=== PATIENT | female | born 1935 | race Caucasian/White ===

== ENCOUNTER → 2017-07-18 | Outpatient (CLI) | payer MEDICARE ==
--- NOTE | 2017-07-18 13:27 | XR ---
EXAMINATION TYPE: XR pelvis AP view, XR Hip Complete RT DATE OF EXAM: 07/18/2017 CLINICAL HISTORY: Pelvic and right hip pain. TECHNIQUE: A single AP view of the pelvis is obtained. Two views of the right hip are obtained. COMPARISON: None. FINDINGS: There is gaseous distention without abnormal dilation of the entirety of the visualized large bowel m easuring up to 6.0 cm. Small bowel gaseous distention is also noted. There is rotation of the left he mipelvis, slightly limiting evaluation. Although in this patient with right-sided pain there is no gr oss evidence of fracture particularly on the right. There is mild to moderate bilateral femoral aceta bular arthropathy. The hip and sacroiliac joints appear symmetric and unremarkable. The overlying soft tissue appears u nremarkable. Two views of right hip show no acute fracture or dislocation. No focal lytic or sclerot ic lesion seen in the proximal right femur. Small cam deformity is seen at the right femoral head nec k junction, which predisposes the patient to internal impingement. Moderate calcific atheromatous jaspal nges are present. IMPRESSION: 1. No acute fracture or dislocation in the pelvis or right hip. 2. Moderate femoral acetabular arthropathy bilaterally. Small cam deformity of the right femoral head neck junction which predisposes the patient to internal impingement. 3. Gaseous distention without dilatation of the large and small bowel.
== END | disposition home or self-care (01) ==
LOC: RADXRMAIN 11:48
PROVIDERS: ATTEND Family Medicine
DX: M12.88 Other specific arthropathies, not elsewhere classified, other specified site (principal); M21.851 Other specified acquired deformities of right thigh
CPT/HCPCS: 72170; 73502; 83036

== ENCOUNTER 2017-07-23 14:54 | Inpatient (IN) | payer MEDICARE ==
[2017-07-23] MEDS ORDERED: SODIUM CHLORIDE 0.9% 1,000 ML IV STA ×2 (15:56)
--- NOTE | 2017-07-23 16:20 | ED ---
General Adult HPI - General Chief complaint: Weakness Stated complaint: Weakness Time Seen by Provider: 07/23/17 15:49 Source: patient, family, RN notes reviewed, old records reviewed Mode of arrival: wheelchair Limitations: no limitations - History of Present Illness Initial comments: This is an 81-year-old female to the ER for evaluation. This patient presents for evaluation regards to multiple different complaints generally sobering arm weakness, abdominal pain. Patient denies fevers. Patient is going to evaluation regarding leg pain and increased shortness of breath with it with walking, she sees cardiology service. She does have a follow-up appointment in 2 weeks, daughter is concerned over patient's pain in her legs, weakness in current abdominal pain. Patient herself has no complaints - Related Data Home Medications Medication Instructions Recorded Confirmed Apixaban [Eliquis] 2.5 mg PO BID 07/23/17 07/23/17 Ascorbic Acid [Vitamin C] 500 mg PO DAILY 07/23/17 07/23/17 Atorvastatin [Lipitor] 10 mg PO DAILY@1200 07/23/17 07/23/17 Calcium Carbonate/Vitamin D3 1 tab PO DAILY 07/23/17 07/23/17 [Calcium 600-Vit D3 400 Caplet] Empagliflozin/Linagliptin 0.5 tab PO DAILY 07/23/17 07/23/17 [Glyxambi 25 mg-5 mg Tablet] Metoprolol Tartrate [Lopressor] 25 mg PO BID 07/23/17 07/23/17 Multivitamins, Thera [Multivitamin 1 tab PO DAILY 07/23/17 07/23/17 (formulary)] Risedronate Sodium [Actonel] 35 mg PO WE 07/23/17 07/23/17 Spironolact/Hydrochlorothiazid 1 tab PO DAILY 07/23/17 07/23/17 [Aldactazide 25-25 MG] amLODIPine [Norvasc] 5 mg PO DAILY 07/23/17 07/23/17 Allergies Allergy/AdvReac Type Severity Reaction Status Date / Time No Known Allergies Allergy Verified 07/23/17 15:55 Review of Systems ROS Statement: Those systems with pertinent positive or pertinent negative responses have been documented in the HPI. ROS Other: All systems not noted in ROS Statement are negative. Past Medical History Past Medical History: Atrial Fibrillation, Diabetes Mellitus, Hyperlipidemia, Hypertension Additional Past Medical History / Comment(s): decreased pulses in BLE History of Any Multi-Drug Resistant Organisms: None Reported Additional Past Surgical History / Comment(s): bowel sx Past Psychological History: Anxiety Smoking Status: Current every day smoker Past Alcohol Use History: None Reported Past Drug Use History: None Reported General Exam Limitations: no limitations General appearance: alert, in no apparent distress Head exam: Present: atraumatic, normocephalic, normal inspection Eye exam: Present: normal appearance, PERRL, EOMI. Absent: scleral icterus, conjunctival injection, periorbital swelling ENT exam: Present: normal exam, mucous membranes moist Neck exam: Present: normal inspection. Absent: tenderness, meningismus, lymphadenopathy Respiratory exam: Present: normal lung sounds bilaterally. Absent: respiratory distress, wheezes, rales, rhonchi, stridor Cardiovascular Exam: Present: tachycardia, irregular rhythm, normal heart sounds. Absent: systolic murmur, diastolic murmur, rubs, gallop, clicks GI/Abdominal exam: Present: soft, normal bowel sounds. Absent: distended, tenderness, guarding, rebound, rigid Extremities exam: Present: normal inspection, full ROM, normal capillary refill. Absent: tenderness, pedal edema, joint swelling, calf tenderness Back exam: Present: normal inspection Neurological exam: Present: alert, oriented X3, CN II-XII intact Psychiatric exam: Present: normal affect, normal mood Skin exam: Present: warm, dry, intact, normal color. Absent: rash Course Vital Signs 07/23/17 07/23/17 15:19 17:27 Temperature 97.3 F L Pulse Rate 82 120 H Respiratory 18 18 Rate Blood Pressure 117/64 145/105 O2 Sat by Pulse 95 95 Oximetry - Reevaluation(s) Reevaluation #1: 07/23/17 17:38 Mild improvement improvement with heart rate control EKG Findings - EKG Comments: EKG Findings:: EKG shows A. fib with RVR rate 129, QRS 160, QTc 457 Medical Decision Making - Medical Decision Making 81 female the ER evaluation for weakness, A. fib with RVR, dehydration and abdominal pain shortness of breath. Patient is to be admitted for continued cardiology evaluation currently outgoing testing with cardiology for peripheral arterial disease. - Lab Data Result diagrams: 07/23/17 16:15 07/23/17 16:15 Lab Results 0607/23/17 07/23/17 Range/Units 16:15 16:15 16:15 WBC 8.4 (3.8-10.6) k/uL RBC 4.57 (3.80-5.40) m/uL Hgb 14.4 (11.4-16.0) gm/dL Hct 42.6 (34.0-46.0) % MCV 93.1 (80.0-100.0) fL MCH 31.4 (25.0-35.0) pg MCHC 33.7 (31.0-37.0) g/dL RDW 12.9 (11.5-15.5) % Plt Count 234 (150-450) k/uL Neutrophils % 72 % Lymphocytes % 19 % Monocytes % 6 % Eosinophils % 2 % Basophils % 1 % Neutrophils # 6.0 (1.3-7.7) k/uL Lymphocytes # 1.6 (1.0-4.8) k/uL Monocytes # 0.5 (0-1.0) k/uL Eosinophils # 0.1 (0-0.7) k/uL Basophils # 0.1 (0-0.2) k/uL PT (9.0-12.0) sec INR (<1.2) APTT (22.0-30.0) sec Sodium 139 (137-145) mmol/L Potassium 2.9 L* (3.5-5.1) mmol/L Chloride 100 (98-107) mmol/L Carbon Dioxide 27 (22-30) mmol/L Anion Gap 12 mmol/L BUN 19 H (7-17) mg/dL Creatinine 0.60 (0.52-1.04) mg/dL Est GFR (CKD-EPI)AfAm >90 (>60 ml/min/1.73 sqM) Est GFR (CKD-EPI)NonAf 85 (>60 ml/min/1.73 sqM) Glucose 178 H (74-99) mg/dL Plasma Lactic Acid Asif (0.7-2.0) mmol/L Calcium 8.8 (8.4-10.2) mg/dL Phosphorus 3.2 (2.5-4.5) mg/dL Magnesium 1.8 (1.6-2.3) mg/dL Total Bilirubin 0.5 (0.2-1.3) mg/dL AST 45 H (14-36) U/L ALT 65 H (9-52) U/L Alkaline Phosphatase 69 (38-126) U/L Total Creatine Kinase 91 (30-135) U/L CK-MB (CK-2) 3.2 H* (0.0-2.4) ng/mL CK-MB (CK-2) Rel Index 3.5 Troponin I 0.779 H* (0.000-0.034) ng/mL Total Protein 5.9 L (6.3-8.2) g/dL Albumin 3.6 (3.5-5.0) g/dL Urine Color Urine Appearance (Clear) Urine pH (5.0-8.0) Ur Specific [place] (1.001-1.035) Urine Protein (Negative) Urine Glucose (UA) (Negative) Urine Ketones (Negative) Urine Blood (Negative) Urine Nitrite (Negative) Urine Bilirubin (Negative) Urine Urobilinogen (<2.0) mg/dL Ur Leukocyte Esterase (Negative) Urine RBC (0-5) /hpf Urine WBC (0-5) /hpf Ur Squamous Epith Cells (0-4) /hpf Urine Bacteria (None) /hpf Hyaline Casts (0-2) /lpf Urine Mucus (None) /hpf 07/23/17 07/23/17 07/23/17 Range/Units 16:15 16:15 16:15 WBC (3.8-10.6) k/uL RBC (3.80-5.40) m/uL Hgb (11.4-16.0) gm/dL Hct (34.0-46.0) % MCV (80.0-100.0) fL MCH (25.0-35.0) pg MCHC (31.0-37.0) g/dL RDW (11.5-15.5) % Plt Count (150-450) k/uL Neutrophils % % Lymphocytes % % Monocytes % % Eosinophils % % Basophils % % Neutrophils # (1.3-7.7) k/uL Lymphocytes # (1.0-4.8) k/uL Monocytes # (0-1.0) k/uL Eosinophils # (0-0.7) k/uL Basophils # (0-0.2) k/uL PT 10.5 (9.0-12.0) sec INR 1.1 (<1.2) APTT 21.2 L (22.0-30.0) sec Sodium (137-145) mmol/L Potassium (3.5-5.1) mmol/L Chloride (98-107) mmol/L Carbon Dioxide (22-30) mmol/L Anion Gap mmol/L BUN (7-17) mg/dL Creatinine (0.52-1.04) mg/dL Est GFR (CKD-EPI)AfAm (>60 ml/min/1.73 sqM) Est GFR (CKD-EPI)NonAf (>60 ml/min/1.73 sqM) Glucose (74-99) mg/dL Plasma Lactic Acid Asif 1.7 (0.7-2.0) mmol/L Calcium (8.4-10.2) mg/dL Phosphorus (2.5-4.5) mg/dL Magnesium (1.6-2.3) mg/dL Total Bilirubin (0.2-1.3) mg/dL AST (14-36) U/L ALT (9-52) U/L Alkaline Phosphatase (38-126) U/L Total Creatine Kinase (30-135) U/L CK-MB (CK-2) (0.0-2.4) ng/mL CK-MB (CK-2) Rel Index Troponin I (0.000-0.034) ng/mL Total Protein (6.3-8.2) g/dL Albumin (3.5-5.0) g/dL Urine Color Yellow Urine Appearance Clear (Clear) Urine pH 6.0 (5.0-8.0) Ur Specific [place] 1.023 (1.001-1.035) Urine Protein 1+ H (Negative) Urine Glucose (UA) 3+ H (Negative) Urine Ketones 1+ H (Negative) Urine Blood Negative (Negative) Urine Nitrite Negative (Negative) Urine Bilirubin Negative (Negative) Urine Urobilinogen <2.0 (<2.0) mg/dL Ur Leukocyte Esterase Trace H (Negative) Urine RBC 3 (0-5) /hpf Urine WBC 4 (0-5) /hpf Ur Squamous Epith Cells 1 (0-4) /hpf Urine Bacteria Rare H (None) /hpf Hyaline Casts 5 H (0-2) /lpf Urine Mucus Few H (None) /hpf - Radiology Data Radiology results: report reviewed (Chest x-ray with x-ray KUB positive for pleural effusion), image reviewed Disposition Clinical Impression: Atrial fibrillation with RVR, Hypokalemia, Dehydration, Weakness Disposition: ADMITTED IP TO THIS HOSP Condition: Fair Is patient prescribed a controlled substance at d/c from ED?: No Referrals: Lowell Velazquez DO [Primary Care Provider] - 1-2 days
[2017-07-23 16:30] LABS: Basophils # (A) 0.1 k/uL (0-0.2); Basophils % (A) 1 %; Eosinophils # (A) 0.1 k/uL (0-0.7); Eosinophils % (A) 2 %; HCT 42.6 % (34.0-46.0); HGB 14.4 gm/dL (11.4-16.0); Lymphocytes # (A) 1.6 k/uL (1.0-4.8); Lymphocytes % (A) 19 %; MCH 31.4 pg (25.0-35.0); MCHC 33.7 g/dL (31.0-37.0); MCV 93.1 fL (80.0-100.0); Mean Platelet Volume 8.3; Monocytes # (A) 0.5 k/uL (0-1.0); Monocytes % (A) 6 %; Neutrophils % (A) 72 %; Platelet Count 234 k/uL (150-450); RBC 4.57 m/uL (3.80-5.40); RDW 12.9 % (11.5-15.5); WBC 8.4 k/uL (3.8-10.6)
[2017-07-23 16:33] LABS: Appearance,Urine Clear (Clear); Bacteria,Urine Rare /hpf; Bilirubin,Urine Negative (Negative); Blood,Urine Negative (Negative); Color,Urine Yellow; Glucose,Urine (UA) 3+ (Negative); Hyaline Casts,Urine 5 /lpf (0-2); Ketones,Urine 1+ (Negative); Leukocyte Esterase,Urine Trace (Negative); Mucus,Urine Few /hpf; Nitrite,Urine Negative (Negative); Protein,Urine 1+ (Negative); RBC,Urine 3 /hpf (0-5); Specific Gravity,Urine 1.023 (1.001-1.035); Squamous Epithelial Cell,Urine 1 /hpf (0-4); Urobilinogen,Urine <2.0 mg/dL (<2.0); WBC,Urine 4 /hpf (0-5)
--- NOTE | 2017-07-23 16:36 | XR ---
EXAMINATION TYPE: XR abdomen acute w cxr DATE OF EXAM: 07/23/2017 COMPARISON: NONE HISTORY: Pain, frequent falls TECHNIQUE: Frontal chest upright and supine views of the abdomen FINDINGS: There is a moderate right pleural effusion. Lungs otherwise appear clear. Scoliosis is pres ent. Vascular calcifications within the aorta. Nonspecific bowel gas is present. Hepatomegaly may be present. Scoliosis within the lumbar spine. Some nonspecific bowel gas within the pelvis. IMPRESSION: 1. Nonspecific abdomen. 2. Moderate right pleural effusion.
[2017-07-23 16:45] LABS: ALT 65 U/L (9-52); AST 45 U/L (14-36); Albumin 3.6 g/dL (3.5-5.0); Alkaline Phosphatase 69 U/L (38-126); Anion Gap 12 mmol/L; Blood Urea Nitrogen 19 mg/dL (7-17); Calcium 8.8 mg/dL (8.4-10.2); Carbon Dioxide 27 mmol/L (22-30); Chloride 100 mmol/L (98-107); Glucose 178 mg/dL (74-99); Magnesium 1.8 mg/dL (1.6-2.3); Phosphorus 3.2 mg/dL (2.5-4.5); Sodium 139 mmol/L (137-145); Total Bilirubin 0.5 mg/dL (0.2-1.3); Total Protein 5.9 g/dL (6.3-8.2)
[2017-07-23 16:47] LABS: INR 1.1 (<1.2); Prothrombin Time 10.5 sec (9.0-12.0)
[2017-07-23 16:49] LABS: Potassium 2.9 mmol/L (3.5-5.1)
[2017-07-23] MEDS ORDERED: POTASSIUM BICARBONATE/CIT AC 20 MEQ TABLET.EFF PO ONE (16:49)
[2017-07-23 16:53] LABS: Partial Thromboplastin Time 21.2 sec (22.0-30.0)
[2017-07-23] MEDS ORDERED: POTASSIUM CHLORIDE 20 MEQ in WATER FOR INJECTION 1 100ML.BAG IVPB STA (16:57)
[2017-07-23] MEDS ORDERED: DILTIAZEM 50 MG in SODIUM CHLORIDE 0.9% 40 ML IV ONE (17:00)
[2017-07-23 17:15] LABS: Creatine Kinase MB 3.2 ng/mL (0.0-2.4); Troponin I 0.779 ng/mL (0.000-0.034)
[2017-07-23] MEDS ORDERED: MORPHINE SULFATE 2 MG/ML SYRINGE IV PRN (17:36)
[2017-07-23] MEDS ORDERED: NITROGLYCERIN SL TABS 0.4 MG TAB SUBLINGUAL PRN (17:36)
[2017-07-23] MEDS ORDERED: REPAGLINIDE 1 MG TAB PO PRN (21:08)
[2017-07-23 21:33] LABS: Glucose,Whole Blood 247 mg/dL (75-99)
[2017-07-23] MEDS: METOPROLOL TARTRATE 25 MG TAB PO SCH (21:37)
[2017-07-23 23:16] LABS: Creatine Kinase MB 2.8 ng/mL (0.0-2.4); Troponin I 0.662 ng/mL (0.000-0.034)
[2017-07-24 01:37] LABS: Hemoglobin A1C 9.2 % (4.0-6.0)
[2017-07-24 04:28] LABS: Basophils % (A) 0 %; Eosinophils # (A) 0.2 k/uL (0-0.7); Eosinophils % (A) 3 %; HCT 37.3 % (34.0-46.0); HGB 12.5 gm/dL (11.4-16.0); Lymphocytes # (A) 1.2 k/uL (1.0-4.8); Lymphocytes % (A) 18 %; MCH 31.1 pg (25.0-35.0); MCHC 33.5 g/dL (31.0-37.0); MCV 92.9 fL (80.0-100.0); Mean Platelet Volume 8.2; Monocytes # (A) 0.3 k/uL (0-1.0); Monocytes % (A) 5 %; Neutrophils # (A) 4.5 k/uL (1.3-7.7); Neutrophils % (A) 72 %; Platelet Count 199 k/uL (150-450); RBC 4.01 m/uL (3.80-5.40); WBC 6.3 k/uL (3.8-10.6)
[2017-07-24 04:45] LABS: Anion Gap 7 mmol/L; Blood Urea Nitrogen 10 mg/dL (7-17); Calcium 7.9 mg/dL (8.4-10.2); Carbon Dioxide 24 mmol/L (22-30); Chloride 105 mmol/L (98-107); Cholesterol 79 mg/dL (<200); Glucose 149 mg/dL (74-99); HDL Cholesterol 27 mg/dL (40-60); LDL Cholesterol,Calculated 34 mg/dL (0-99); Potassium 3.5 mmol/L (3.5-5.1); Sodium 136 mmol/L (137-145); Triglycerides 91 mg/dL (<150)
[2017-07-24 05:22] LABS: Creatine Kinase MB 2.5 ng/mL (0.0-2.4); Troponin I 0.785 ng/mL (0.000-0.034)
[2017-07-24 05:53] LABS: Glucose,Whole Blood 158 mg/dL (75-99)
[2017-07-24] MEDS: ASCORBIC ACID 500 MG TAB PO SCH (08:12)
[2017-07-24] MEDS: CALCIUM CARB-VIT D 500MG-200UN 1 EACH TAB PO SCH (08:12)
[2017-07-24] MEDS: amLODIPine 5 MG TAB PO SCH (08:12)
[2017-07-24] MEDS: METOPROLOL TARTRATE 25 MG TAB PO SCH ×3 (08:13→20:14)
[2017-07-24] MEDS: MULTIVITAMINS, THERA 1 EACH TAB PO SCH (08:13)
[2017-07-24] MEDS: SPIRONOLACTONE-HCTZ 25-25MG 1 EACH TAB PO SCH (08:13)
[2017-07-24] MEDS: ATORVASTATIN 10 MG TAB PO SCH (08:13)
[2017-07-24] MEDS: GLYXAMBI PO SCH (08:13)
[2017-07-24] MEDS ORDERED: RISEDRONATE SODIUM 35 MG PO SCH (09:00)
[2017-07-24] MEDS ORDERED: APIXABAN 2.5 MG TABLET PO SCH (09:00)
[2017-07-24] MEDS ORDERED: ASPIRIN 325 MG TAB PO SCH (09:00)
[2017-07-24] MEDS ORDERED: RX INFO: IV CONTRAST WAS GIVEN 1 EACH MISC MISCELLANE PRN (09:04)
[2017-07-24] MEDS ORDERED: REPAGLINIDE 1 MG TAB PO PRN ×2 (09:07)
--- NOTE | 2017-07-24 10:46 | CT ---
EXAMINATION TYPE: CT chest w con DATE OF EXAM: 07/24/2017 COMPARISON: NONE HISTORY: Pleural effusion CT DLP: 187.6 mGycm. Automated Exposure Control for Dose Reduction was Utilized. TECHNIQUE: CT scan of the thorax is performed following with IV Contrast, patient injected with 100 mL of Isovue 300. FINDINGS: LUNGS: There is a large right pleural effusion with associated multifocal subsegmental compressive at electasis. This limits evaluation for right-sided pulmonary nodules. The aerated portions of the righ t lung remain clear. Intrafissural fluid is noted. On the left there is minimal apical scarring. No s uspicious pulmonary nodule or mass. Areas of linear pleural parenchymal scarring are seen at the left lung base in addition to a trace left pleural effusion and left basilar subsegmental atelectasis. Prominent right hilar and infrahilar soft tissue density should be reevaluated after resolution of th e pleural effusion to evaluate for underlying mass. MEDIASTINUM: There are no greater than 1 cm hilar or mediastinal lymph nodes. No pericardial effusi on is seen. Moderate three-vessel coronary artery calcifications are present. Extensive calcific ath eromatous changes are seen of the thoracic aorta. 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 Chronicity is unknown. Small amount of perihepatic ascites is seen. There is osseous demineralization throughout a nd mild multilevel degenerative changes of the thoracic spine. IMPRESSION: 1. 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 Chronicity is unknown. Abdomen pelvis CTA could be performed for further evaluation. Findings also communicated with the dewey Jose at 10:43 on 07-24-17 in addition to the critical message sent to the ordering physician. 2. Large right pleural effusion and associated multifocal subsegmental atelectasis additionally there is right infrahilar soft tissue density that should be reevaluated after resolution of the periphera l effusion to evaluate for underlying mass. 3. Trace left pleural effusion and left basilar subsegmental atelectasis. A [place] level critical message alert has been initiated for Kenan Biswas MD via the [employer] Critical Results System on 07/24/2017 10:40 AM. This message alert has been sent to Kenan Biswas MD via the preferences provided by the clinician for the receipt of Radiology Critical Findings. Message ID [id number].
--- NOTE | 2017-07-24 11:07 | P.CNPUL ---
<Svetlana Spear E - Last Filed: 07/24/17 10:53> History of Present Illness Consult date: 07/24/17 Requesting physician: Ana Tabares Reason for consult: pleural effusion Chief complaint: shortness of breath History of present illness: This is an 79-year-old female patient being seen examined and evaluated for consultation. This patient came in for shortness of breath with exertion and recurrent falls but have been happening more frequently lately. The patient has been experiencing significant pain in her legs and weakness post fall last . She does have a known history of atrial fibrillation and was noted to be in RVR and dehydrated upon admission to the ER. Patient states she's been watching what she decreasing her intake in order to prevent diabetes. According to the family members the patient originally weighed 130 pounds and has been down to 90. She was ultimately admitted to the hospital with atrial fibrillation with RVR, hypokalemia, dehydration and weakness for further evaluation and treatment. Patient is noted to be a half pack per day smoker for approximately 50 years. Upon examination thing up in bed on 2 L of supplemental oxygen via nasal cannula. She denies any use of home oxygen, or nebulizers or MDIs. She has never been worked up in the pulmonary office. She also has had a cough that is congested, no sputum as been able to be brought up. 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 Dr. Chase for vascular surgery was consulted for the occlusion of the aorta. Review of Systems 14 point review of system was completed and is negative unless noted above in the HPI. Past Medical History Past Medical History: Atrial Fibrillation, Diabetes Mellitus, Eye Disorder, Hyperlipidemia, Hypertension, Memory Impairment Additional Past Medical History / Comment(s): decreased pulses in BLE, cataracts , diet controlled dm,occ incont of urine/stool, some memory impairment, unsteady gait/falls History of Any Multi-Drug Resistant Organisms: None Reported Past Surgical History: Tubal Ligation Additional Past Surgical History / Comment(s): bowel sx d/t twisted bowel Past Anesthesia/Blood Transfusion Reactions: No Reported Reaction Smoking Status: Current every day smoker - Past Family History Father Family Medical History: Diabetes Mellitus Brother(s) Family Medical History: Diabetes Mellitus Mother History Unknown: Yes Medications and Allergies Home Medications Medication Instructions Recorded Confirmed Type Apixaban [Eliquis] 2.5 mg PO BID 07/23/17 07/23/17 History Ascorbic Acid [Vitamin C] 500 mg PO DAILY 07/23/17 07/23/17 History Atorvastatin [Lipitor] 10 mg PO DAILY@1200 07/23/17 07/23/17 History Calcium Carbonate/Vitamin D3 1 tab PO DAILY 07/23/17 07/23/17 History [Calcium 600-Vit D3 400 Caplet] Empagliflozin/Linagliptin 0.5 tab PO DAILY 07/23/17 07/23/17 History [Glyxambi 25 mg-5 mg Tablet] Metoprolol Tartrate [Lopressor] 25 mg PO BID 07/23/17 07/23/17 History Multivitamins, Thera [Multivitamin 1 tab PO DAILY 07/23/17 07/23/17 History (formulary)] Risedronate Sodium [Actonel] 35 mg PO WE 07/23/17 07/23/17 History Spironolact/Hydrochlorothiazid 1 tab PO DAILY 07/23/17 07/23/17 History [Aldactazide 25-25 MG] amLODIPine [Norvasc] 5 mg PO DAILY 07/23/17 07/23/17 History Allergies Allergy/AdvReac Type Severity Reaction Status Date / Time No Known Allergies Allergy Verified 07/23/17 15:55 Physical Exam Vitals: Vital Signs Temp Pulse Pulse Resp BP BP Pulse Ox 07/24/17 08:00 97.2 F L 76 18 161/68 94 L 07/24/17 03:19 77 16 07/24/17 03:17 97.0 F L 77 16 154/68 95 07/24/17 00:00 97.2 F L 70 18 151/65 96 07/23/17 20:00 97.4 F L 82 19 147/54 96 07/23/17 18:30 97.1 F L 76 18 134/63 96 07/23/17 18:00 97.4 F L 79 18 116/67 97 07/23/17 17:27 120 H 18 145/105 95 07/23/17 15:19 97.3 F L 82 18 117/64 95 07/23/17 15:15 18 Intake and Output 07/23/17 07/24/17 07/24/17 22:59 06:59 14:59 Intake Total 850 0 Output Total 300 Balance -300 850 0 Intake: Intake, IV Titration 850 Amount Potassium Chloride 20 meq 50 In Water For Injection 1 100ml.bag @ 50 mls/hr IVPB ONCE STA Rx#: [id number] Sodium Chloride 0.9% 1, 800 000 ml @ 100 mls/hr IV . Q10H STA Rx#:[id number] Oral 0 Output: Urine 300 Other: Voiding Method Toilet Toilet # Voids 1 Weight 40.823 kg 41.6 kg GENERAL EXAM: Alert, thin, frail comfortable in no apparent distress. HEAD: Normocephalic. EYES: Normal reaction of pupils, equal size. NOSE: Clear with pink turbinates. THROAT: No erythema or exudates. NECK: No masses, no JVD. CHEST: No chest wall deformity. LUNGS: Equal air entry with no crackles, wheeze, rhonchi or dullness. CVS: S1 and S2 normal with no audible mumurs, regular rhythm. ABDOMEN: No hepatosplenomegaly, normal bowel sounds, no guarding or rigidity. EXTREMITIES: No edema noted, pedal pulses palpable. CENTRAL NERVOUS SYSTEM: No focal deficits, tone is normal in all 4 extremities. Results - Laboratory Findings CBC and BMP: 07/24/17 04:06 07/24/17 04:06 PT/INR, D-dimer PT 10.5 sec (9.0-12.0) 07/23/17 16:15 INR 1.1 (<1.2) 07/23/17 16:15 Abnormal lab findings: Abnormal Labs 07/23/17 07/23/17 07/23/17 16:15 16:15 16:15 APTT 21.2 L Sodium Potassium 2.9 L* BUN 19 H Creatinine Glucose 178 H POC Glucose (mg/dL) Hemoglobin A1c Calcium AST 45 H ALT 65 H CK-MB (CK-2) 3.2 H* Troponin I 0.779 H* Total Protein 5.9 L HDL Cholesterol Urine Protein Urine Glucose (UA) Urine Ketones Ur Leukocyte Esterase Urine Bacteria Hyaline Casts Urine Mucus 07/23/17 07/23/17 07/23/17 16:15 16:15 21:32 APTT Sodium Potassium BUN Creatinine Glucose POC Glucose (mg/dL) 247 H Hemoglobin A1c 9.2 H Calcium AST ALT CK-MB (CK-2) Troponin I Total Protein HDL Cholesterol Urine Protein 1+ H Urine Glucose (UA) 3+ H Urine Ketones 1+ H Ur Leukocyte Esterase Trace H Urine Bacteria Rare H Hyaline Casts 5 H Urine Mucus Few H 07/23/17 07/24/17 07/24/17 22:13 04:06 04:06 APTT Sodium 136 L Potassium BUN Creatinine 0.40 L Glucose 149 H POC Glucose (mg/dL) Hemoglobin A1c Calcium 7.9 L AST ALT CK-MB (CK-2) 2.8 H* 2.5 H* Troponin I 0.662 H* 0.785 H* Total Protein HDL Cholesterol 27 L Urine Protein Urine Glucose (UA) Urine Ketones Ur Leukocyte Esterase Urine Bacteria Hyaline Casts Urine Mucus 07/24/17 05:52 APTT Sodium Potassium BUN Creatinine Glucose POC Glucose (mg/dL) 158 H Hemoglobin A1c Calcium AST ALT CK-MB (CK-2) Troponin I Total Protein HDL Cholesterol Urine Protein Urine Glucose (UA) Urine Ketones Ur Leukocyte Esterase Urine Bacteria Hyaline Casts Urine Mucus - Diagnostic Findings CT scan - chest: report reviewed, image reviewed Assessment and Plan Assessment: Assessment Acute hypoxic respiratory failure requiring supplemental oxygen Bilateral pleural effusions right greater than the left Right-sided lung soft tissue density to be reactive evaluated after pleural effusion has resolved to evaluate for underlying mass 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 fib with RVR Hypokalemia Weakness Plan Vascular surgery on consult for occlusion of intra-renal abdominal aorta Cardiology on consult, appreciate recommendations Medications have been reviewed and will be continued as ordered. Antibiotics and Solu-Medrol taper Continue with pulmonary hygiene, coughing and deep breathing exercises, and supportive care. Supplemental oxygen to maintain oxygen saturations of 92% or better. Continue nebulizer treatments. Continue to monitor and replace electrolytes per protocol GI and DVT prophylaxis. We will continue to monitor labs/results and adjust treatment as necessary. Further recommendations pending. I performed an examination of the patient and discussed their management with the nurse practitioner. I have reviewed the nurse practitioner's note and agree with the documented findings and plan of care. <Ternes,Ritika A - Last Filed: 07/24/17 11:49> Physical Exam Osteopathic Statement: *. No significant issues noted on an osteopathic structural exam other than those noted in the History and Physical/Consult. Vitals: Vital Signs Temp Pulse Pulse Resp BP BP Pulse Ox 07/24/17 11:45 97.6 F 73 18 161/69 95 07/24/17 08:00 97.2 F L 76 18 161/68 94 L 07/24/17 03:19 77 16 07/24/17 03:17 97.0 F L 77 16 154/68 95 07/24/17 00:00 97.2 F L 70 18 151/65 96 07/23/17 20:00 97.4 F L 82 19 147/54 96 07/23/17 18:30 97.1 F L 76 18 134/63 96 07/23/17 18:00 97.4 F L 79 18 116/67 97 07/23/17 17:27 120 H 18 145/105 95 07/23/17 15:19 97.3 F L 82 18 117/64 95 07/23/17 15:15 18 Intake and Output 07/23/17 07/24/17 07/24/17 22:59 06:59 14:59 Intake Total 850 0 Output Total 300 Balance -300 850 0 Intake: Intake, IV Titration 850 Amount Potassium Chloride 20 meq 50 In Water For Injection 1 100ml.bag @ 50 mls/hr IVPB ONCE STA Rx#: [id number] Sodium Chloride 0.9% 1, 800 000 ml @ 100 mls/hr IV . Q10H STA Rx#:[id number] Oral 0 Output: Urine 300 Other: Voiding Method Toilet Toilet # Voids 1 Weight 40.823 kg 41.6 kg Results - Laboratory Findings CBC and BMP: 07/24/17 04:06 07/24/17 04:06 PT/INR, D-dimer PT 10.5 sec (9.0-12.0) 07/23/17 16:15 INR 1.1 (<1.2) 07/23/17 16:15 Abnormal lab findings: Abnormal Labs 07/23/17 07/23/17 07/23/17 16:15 16:15 16:15 APTT 21.2 L Sodium Potassium 2.9 L* BUN 19 H Creatinine Glucose 178 H POC Glucose (mg/dL) Hemoglobin A1c Calcium AST 45 H ALT 65 H CK-MB (CK-2) 3.2 H* Troponin I 0.779 H* Total Protein 5.9 L HDL Cholesterol Urine Protein Urine Glucose (UA) Urine Ketones Ur Leukocyte Esterase Urine Bacteria Hyaline Casts Urine Mucus 07/23/17 07/23/17 07/23/17 16:15 16:15 21:32 APTT Sodium Potassium BUN Creatinine Glucose POC Glucose (mg/dL) 247 H Hemoglobin A1c 9.2 H Calcium AST ALT CK-MB (CK-2) Troponin I Total Protein HDL Cholesterol Urine Protein 1+ H Urine Glucose (UA) 3+ H Urine Ketones 1+ H Ur Leukocyte Esterase Trace H Urine Bacteria Rare H Hyaline Casts 5 H Urine Mucus Few H 07/23/17 07/24/17 07/24/17 22:13 04:06 04:06 APTT Sodium 136 L Potassium BUN Creatinine 0.40 L Glucose 149 H POC Glucose (mg/dL) Hemoglobin A1c Calcium 7.9 L AST ALT CK-MB (CK-2) 2.8 H* 2.5 H* Troponin I 0.662 H* 0.785 H* Total Protein HDL Cholesterol 27 L Urine Protein Urine Glucose (UA) Urine Ketones Ur Leukocyte Esterase Urine Bacteria Hyaline Casts Urine Mucus 07/24/17 05:52 APTT Sodium Potassium BUN Creatinine Glucose POC Glucose (mg/dL) 158 H Hemoglobin A1c Calcium AST ALT CK-MB (CK-2) Troponin I Total Protein HDL Cholesterol Urine Protein Urine Glucose (UA) Urine Ketones Ur Leukocyte Esterase Urine Bacteria Hyaline Casts Urine Mucus Assessment and Plan Assessment: Patient seen and examined with multiple family members at bedside. The patient has right pleural effusion. US chest to fátima for thoracentesis. Patient will need to hold Eliquis for 24-48 hours prior to procedure. Will need repeat CT without contrast after thoracentesis to assess for underlying mass. Consult vascular surgery regarding complete occlusion of infrarenal aorta. Cardiology recommendations. ~Ritika Kemp DO
--- NOTE | 2017-07-24 11:24 | P.CRDCN ---
History of Present Illness Consult date: 07/24/17 Requesting physician: Kenan Biswas Consult reason: atrial fibrillation Chief complaint: Shortness of breath, weakness, falls, abdominal pain History of present illness: Is an 81-year-old female who follows with Dr. VC Munoz in the office. She has a known history of paroxysmal atrial fibrillation for which she takes Eliquis 200 mg one tablet by mouth twice a day, she also has history of hypertension, hyperlipidemia, borderline diabetes, nicotine dependence, presented to the hospital with symptoms of progressively worsening shortness of breath with associated weakness and frequent falls at home. Patient also has been walking up to 5 miles a day and not eating regularly because of her fear of developing worsening diabetes. She has had significant weight loss. Her initial EKG on presentation here showed atrial fibrillation with a rapid ventricular response. An abdominal series was performed which revealed nonspecific abdomen with a moderate right-sided pleural effusion. 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 Trace left pleural effusion. Patient has been seen by pulmonary this morning with plan to possible do a thoracentesis today. CBC is normal, sodium 136, potassium 2.9 on admission, 3.5 this morning. BUN 10, creatinine 0.4. AST 45, ALT 65. Troponins 0.7, 0.6, 0.7. TSH is normal. Blood pressure on arrival 116 /60 with a heart rate of 82, temperature 97.3, 95% on 2 L of oxygen. Shortly after admission, patient went into A. fib with RVR, heart rate 120, blood pressure 145/105. At the time of my examination this morning, family is at bedside. Therapy was in to attempt to walk the patient, she was quite unsteady on her feet. I did have a discussion with the patient and the family regarding anticoagulation and risk for bleed with her recent falls. Patient continues to be on a Cardizem drip at 5 mg per hour. Past Medical History Past Medical History: Atrial Fibrillation, Diabetes Mellitus, Eye Disorder, Hyperlipidemia, Hypertension, Memory Impairment Additional Past Medical History / Comment(s): decreased pulses in BLE, cataracts , diet controlled dm,occ incont of urine/stool, some memory impairment, unsteady gait/falls History of Any Multi-Drug Resistant Organisms: None Reported Past Surgical History: Tubal Ligation Additional Past Surgical History / Comment(s): bowel sx d/t twisted bowel Past Anesthesia/Blood Transfusion Reactions: No Reported Reaction Smoking Status: Current every day smoker - Past Family History Father Family Medical History: Diabetes Mellitus Brother(s) Family Medical History: Diabetes Mellitus Mother History Unknown: Yes Medications and Allergies Home Medications Medication Instructions Recorded Confirmed Type Apixaban [Eliquis] 2.5 mg PO BID 07/23/17 07/23/17 History Ascorbic Acid [Vitamin C] 500 mg PO DAILY 07/23/17 07/23/17 History Atorvastatin [Lipitor] 10 mg PO DAILY@1200 07/23/17 07/23/17 History Calcium Carbonate/Vitamin D3 1 tab PO DAILY 07/23/17 07/23/17 History [Calcium 600-Vit D3 400 Caplet] Empagliflozin/Linagliptin 0.5 tab PO DAILY 07/23/17 07/23/17 History [Glyxambi 25 mg-5 mg Tablet] Metoprolol Tartrate [Lopressor] 25 mg PO BID 07/23/17 07/23/17 History Multivitamins, Thera [Multivitamin 1 tab PO DAILY 07/23/17 07/23/17 History (formulary)] Risedronate Sodium [Actonel] 35 mg PO WE 07/23/17 07/23/17 History Spironolact/Hydrochlorothiazid 1 tab PO DAILY 07/23/17 07/23/17 History [Aldactazide 25-25 MG] amLODIPine [Norvasc] 5 mg PO DAILY 07/23/17 07/23/17 History Allergies Allergy/AdvReac Type Severity Reaction Status Date / Time No Known Allergies Allergy Verified 07/23/17 15:55 Physical Exam Vitals: Vital Signs Temp Pulse Pulse Resp BP BP Pulse Ox 07/24/17 08:00 97.2 F L 76 18 161/68 94 L 07/24/17 03:19 77 16 07/24/17 03:17 97.0 F L 77 16 154/68 95 07/24/17 00:00 97.2 F L 70 18 151/65 96 07/23/17 20:00 97.4 F L 82 19 147/54 96 07/23/17 18:30 97.1 F L 76 18 134/63 96 07/23/17 18:00 97.4 F L 79 18 116/67 97 07/23/17 17:27 120 H 18 145/105 95 07/23/17 15:19 97.3 F L 82 18 117/64 95 07/23/17 15:15 18 Intake and Output 07/23/17 07/24/17 07/24/17 22:59 06:59 14:59 Intake Total 850 0 Output Total 300 Balance -300 850 0 Intake: Intake, IV Titration 850 Amount Potassium Chloride 20 meq 50 In Water For Injection 1 100ml.bag @ 50 mls/hr IVPB ONCE STA Rx#: [id number] Sodium Chloride 0.9% 1, 800 000 ml @ 100 mls/hr IV . Q10H STA Rx#:[id number] Oral 0 Output: Urine 300 Other: Voiding Method Toilet Toilet # Voids 1 Weight 40.823 kg 41.6 kg PHYSICAL EXAMINATION: GENERAL: This is a frail, somewhat emaciated appearing 81-year-old female, in no apparent distress at the time of my examination HEENT: Head is atraumatic, normocephalic. Pupils equal, round. Sclera anicteric. Conjunctiva are clear. Mucous membranes of the mouth are moist. Neck is supple. There is no elevated jugular venous pressure.] bruit is heard. HEART EXAMINATION: Heart S1 and S2 irregularly irregular CHEST EXAMINATION: Lungs are clear with diminished air entry bilaterally, right greater than left. ABDOMEN: Soft, nontender. Bowel sounds are heard. No organomegaly noted. EXTREMITIES: 2+ peripheral pulses with no evidence of peripheral edema and no calf tenderness noted. NEUROLOGIC patient is awake, alert and oriented -3. . Results 07/24/17 04:06 07/24/17 04:06 Cardiac Enzymes 07/23/17 07/23/17 07/23/17 Range/Units 16:15 16:15 22:13 AST 45 H (14-36) U/L CK-MB (CK-2) 3.2 H* 2.8 H* (0.0-2.4) ng/mL Troponin I 0.779 H* 0.662 H* (0.000-0.034) ng/mL 06/06/18 Range/Units 04:06 AST (14-36) U/L CK-MB (CK-2) 2.5 H* (0.0-2.4) ng/mL Troponin I 0.785 H* (0.000-0.034) ng/mL Coagulation 07/23/17 Range/Units 16:15 PT 10.5 (9.0-12.0) sec APTT 21.2 L (22.0-30.0) sec Lipids 07/24/17 Range/Units 04:06 Triglycerides 91 (<150) mg/dL Cholesterol 79 (<200) mg/dL HDL Cholesterol 27 L (40-60) mg/dL CBC 07/23/17 07/24/17 Range/Units 16:15 04:06 WBC 8.4 6.3 (3.8-10.6) k/uL RBC 4.57 4.01 (3.80-5.40) m/uL Hgb 14.4 12.5 (11.4-16.0) gm/dL Hct 42.6 37.3 (34.0-46.0) % Plt Count 234 199 (150-450) k/uL Comprehensive Metabolic Panel 07/23/17 07/24/17 Range/Units 16:15 04:06 Sodium 139 136 L (137-145) mmol/L Potassium 2.9 L* 3.5 (3.5-5.1) mmol/L Chloride 100 105 (98-107) mmol/L Carbon Dioxide 27 24 (22-30) mmol/L BUN 19 H 10 (7-17) mg/dL Creatinine 0.60 0.40 L (0.52-1.04) mg/dL Glucose 178 H 149 H (74-99) mg/dL Calcium 8.8 7.9 L (8.4-10.2) mg/dL AST 45 H (14-36) U/L ALT 65 H (9-52) U/L Alkaline Phosphatase 69 (38-126) U/L Total Protein 5.9 L (6.3-8.2) g/dL Albumin 3.6 (3.5-5.0) g/dL Current Medications Generic Name Dose Route Start Last Admin Trade Name Freq PRN Reason Stop Dose Admin Albuterol/Ipratropium 3 ml 07/24/17 09:06 Duoneb 0.5 Mg-3 Mg/3 Ml Soln INHALATION RT-TID PRN Shortness Of Breath Or Wheezing Amlodipine Besylate 5 mg 07/24/17 09:00 07/24/17 08:12 Norvasc PO 5 mg DAILY [facility] Administration Apixaban 2.5 mg 07/24/17 09:00 07/24/17 08:12 Eliquis PO 2.5 mg BID [facility] Administration Ascorbic Acid 500 mg 07/24/17 09:00 07/24/17 08:12 Vitamin C PO 500 mg DAILY [facility] Administration Aspirin 81 mg 07/25/17 09:00 Aspirin PO DAILY [facility] Atorvastatin Calcium 10 mg 07/24/17 12:00 07/24/17 08:13 Lipitor PO 10 mg DAILY@1200 [facility] Administration Budesonide 0.5 mg 07/24/17 20:00 Pulmicort INHALATION RT-BID [facility] Calcium Carbonate 1 each 07/24/17 09:00 07/24/17 08:12 Oscal 500+D PO 1 each DAILY [facility] Administration HCTZ/Spironolactone 1 each 07/24/17 09:00 07/24/17 08:13 Aldactazide 25-25mg PO 1 each DAILY [facility] Administration Levofloxacin 500 mg 07/24/17 10:00 Levaquin PO Q24H [facility] Methylprednisolone Sodium Succinate 40 mg 07/24/17 09:06 Solu-Medrol IV Q6HR [facility] Metoprolol Tartrate 25 mg 07/23/17 21:15 07/24/17 08:13 Lopressor PO 25 mg BID [facility] Administration Miscellaneous Information 1 each 07/24/17 09:04 Rx Info: Iv Contrast Was Given MISCELLANE 07/26/17 09:05 DAILY PRN Per Protocol Morphine Sulfate 4 mg 07/23/17 17:36 Morphine Sulfate (Inj) IV Q5M PRN Chest Pain Multivitamins 1 each 07/24/17 12:00 07/24/17 08:13 Theragran PO 1 each DAILY@1200 [facility] Administration Nitroglycerin 0.4 mg 07/23/17 17:36 Nitrostat SUBLINGUAL Q5M PRN Chest Pain Glyxambi 25 Mg-5 Mg 0.5 tab 07/24/17 09:00 07/24/17 08:13 Tablet] 0.5 Tab PO Not Given DAILY [facility] Risedronate Sodium [ 35 mg 07/24/17 09:00 07/24/17 08:13 Actonel] 35 Mg PO Not Given [facility] Repaglinide 0.5 mg 07/23/17 21:08 Prandin PO AC-TID PRN if CBG >150 Repaglinide 1 mg 07/24/17 09:07 Prandin PO AC-TID PRN Blood sugar >200 Repaglinide 2 mg 07/24/17 09:07 Prandin PO AC-TID PRN BLood sugar > 250 Intake and Output 07/23/17 07/24/17 07/24/17 22:59 06:59 14:59 Intake Total 850 0 Output Total 300 Balance -300 850 0 Intake: Intake, IV Titration 850 Amount Potassium Chloride 20 meq 50 In Water For Injection 1 100ml.bag @ 50 mls/hr IVPB ONCE STA Rx#: [id number] Sodium Chloride 0.9% 1, 800 000 ml @ 100 mls/hr IV . 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 Large right-sided pleural effusion and associated multifocal subsegmental atelectasis additionally there is a right infrahilar soft tissue density that should be reevaluated after resolution of the peripheral effusion to evaluate for underlying mass, trace left-sided pleural effusion #2 paroxysmal atrial fibrillation, rapid rate on admission, currently on IV Cardizem. On Eliquis 2-1/2 mg one tablet by mouth twice a day for anticoagulation #3 frequent falls #4 hypertension # 5 hyperlipidemia #6 borderline diabetes #7 malnutrition #8 hypothyroidism, TSH normal. #9 mildly elevated liver enzymes #10 abnormal troponins, not consistent with acute coronary syndrome likely secondary to supply demand mismatch. #11 nicotine dependence Plan Patient suddenly had an echocardiogram with Doppler study performed in the office in April of this year which revealed normal LV size with normal function , grade 2 diastolic dysfunction. Ejection fraction 55%. I also did have a lengthy discussion with the patient and her family regarding anticoagulation in view of the fact that she's been having frequent falls recently. We will not repeat an echo on this admission. We will increase the dose of beta elmer to 25 mg by mouth 3 times a day. Further recommendations to follow. DNP note has been reviewed, I agree with a documented findings and plan of care. Patient was seen and examined.
[2017-07-24] MEDS: LEVOFLOXACIN 500 MG TAB PO SCH (11:37)
[2017-07-24] MEDS: methylPREDNISolone SOD SUCCI 40 MG/ML 1 ML VIAL IV SCH ×4 (11:38→23:13)
[2017-07-24 12:01] LABS: Glucose,Whole Blood 216 mg/dL (75-99)
--- NOTE | 2017-07-24 12:02 | P.HPIM ---
History of Present Illness H&P Date: 07/24/17 Chief Complaint: Weakness This an 81-year-old female patient of Dr. Velazquez with a past history for paroxysmal atrial fibrillation, diabetes mellitus hypertension, hyperlipidemia, short-term memory deficit, previous bowel obstruction status post resection. Per patient and her family she has had increasing weakness and falls. She complains of pains in her legs in one or both of been going on for couple weeks off and on. The pain is more so when she is walking and feels like leg cramps. At rest the pain goes away. She denies any back pain. She also complains of shortness of breath especially with minimal ambulation.. She did have a fall last week and came in as an outpatient for x-rays of the right hip and pelvis that showed no acute fracture or dislocation. Moderate femoral acetabular arthropathy bilaterally. Small cam deformity of the right femoral head and neck junction with predisposes the patient to internal impingement. These were ordered by her continuous improvement intern Dr. Munoz. She recently started using a cane. They have also set up [employer] which arrived yesterday. Patient has recently had a weight gain of 6 pounds but is very thin and daughter states that she does not eat much because she is trying to keep her blood sugars down. Patient is an active smoker currently down to 3 cigarettes per day and she does not want a patch. Daughter also states patient was having abdominal pain yesterday. Patient denies any pain at this time. The patient was brought in by family to [facility] emergency center for evaluation. EKG was A. fib with a rate of 129. She was afebrile. Her white count was normal, hemoglobin 14.4, potassium only 2.9, BUN 19 and creatinine 0.6. Blood sugar was 178. Troponin was 0.779, AST 45 and ALT 65. Urinalysis was clear with nitrate and leukoesterase negative, bacteria rare. Abdominal x-ray and he means and chest x-ray moderate right pleural effusion. Patient was admitted to the selective care unit and cardiology consult requested. Patient was placed on Cardizem drip and echocardiogram ordered. Patient is now in normal sinus rhythm. Repeat potassium this morning is 3.5. Repeat troponins are 0.662 and 0.785. Triglycerides 91, cholesterol 79, LDL 34 , HDL 27, TSH 2.449. Hemoglobin A1c is 9.2. Consults requested with pulmonary medicine and cardiology. 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 Chronicity is unknown. Abdomen and pelvis CTA is recommended. There is a large right pleural effusion and associated multifocal subsegmental atelectasis additionally there is a right infrahilar soft tissue density that should be reevaluated after resolution of the effusion to evaluate for underlying mass. Trace left pleural effusion and left basilar subsegmental atelectasis. CTA of the abdomen and pelvis is been ordered. Consult with Dr. Fry. Review of Systems All systems: negative Constitutional: Reports weight gain, Denies chills, Denies fever Eyes: denies blurred vision, denies pain Ears, nose, mouth and throat: Denies headache, Denies sore throat, Denies vertigo Cardiovascular: Reports decreased exercise tolerance, Reports dyspnea on exertion, Reports shortness of breath, Denies chest pain, Denies edema, Denies leg edema, Denies lightheadedness, Denies orthopnea, Denies syncope Respiratory: Reports dyspnea, Denies cough, Denies cough with sputum, Denies excessive sputum, Denies hemoptysis, Denies home oxygen, Denies wheezing Gastrointestinal: Reports abdominal pain, Denies diarrhea, Denies nausea, Denies vomiting Genitourinary: Denies dysuria, Denies hematuria, Denies urgency, Denies urinary frequency Musculoskeletal: Reports frequent falls, Reports gait dysfunction, Reports muscle cramps, Denies arm numbness/tingling, Denies leg numbness/tingling, Denies limitation of motion, Denies low back pain, Denies myalgias Integumentary: Denies pruritus, Denies rash, Denies wounds Neurological: Reports gait dysfunction, Reports memory loss, Denies numbness, Denies seizures, Denies syncope, Denies vertigo, Denies weakness Psychiatric: Denies anxiety, Denies depression Endocrine: Reports weight change, Denies fatigue Past Medical History Past Medical History: Atrial Fibrillation, Diabetes Mellitus, Eye Disorder, Hyperlipidemia, Hypertension, Memory Impairment, Vascular Disorder Additional Past Medical History / Comment(s): PVD, DMT2, occ incont of urine/ stool, some memory impairment, unsteady gait/falls History of Any Multi-Drug Resistant Organisms: None Reported Past Surgical History: Tubal Ligation Additional Past Surgical History / Comment(s): bowel sx d/t bowel obstruction, colonoscopies that are normal, bilateral cataract removal and intraocular lens implants Past Anesthesia/Blood Transfusion Reactions: No Reported Reaction Smoking Status: Current every day smoker Additional Past Alcohol Use History / Comment(s): Patient has been smoking since she was 17 years of age. She is currently cut back to 3 cigarettes per day. She lives at home with her . 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 [employer] has been set up as of yesterday. She uses a cane for ambulation. No oxygen, nebulizer or CPAP at home. - Past Family History Father Family Medical History: Diabetes Mellitus Additional Family Medical History / Comment(s): Mother at a young age from consultation from alcohol abuse. Brother(s) Family Medical History: Diabetes Mellitus Additional Family Medical History / Comment(s): Patient had 4 brothers and one from diabetes with complications including amputations. Mother History Unknown: Yes Additional Family Medical History / Comment(s): Mother has passed and also had history of diabetes with previous lower extremity amputations. Sister(s) Additional Family Medical History / Comment(s): Patient has one sister that had a history of myasthenia gravis. Medications and Allergies Home Medications Medication Instructions Recorded Confirmed Type Apixaban [Eliquis] 2.5 mg PO BID 07/23/17 07/23/17 History Ascorbic Acid [Vitamin C] 500 mg PO DAILY 07/23/17 07/23/17 History Atorvastatin [Lipitor] 10 mg PO DAILY@1200 07/23/17 07/23/17 History Calcium Carbonate/Vitamin D3 1 tab PO DAILY 07/23/17 07/23/17 History [Calcium 600-Vit D3 400 Caplet] Empagliflozin/Linagliptin 0.5 tab PO DAILY 07/23/17 07/23/17 History [Glyxambi 25 mg-5 mg Tablet] Metoprolol Tartrate [Lopressor] 25 mg PO BID 07/23/17 07/23/17 History Multivitamins, Thera [Multivitamin 1 tab PO DAILY 07/23/17 07/23/17 History (formulary)] Risedronate Sodium [Actonel] 35 mg PO WE 07/23/17 07/23/17 History Spironolact/Hydrochlorothiazid 1 tab PO DAILY 07/23/17 07/23/17 History [Aldactazide 25-25 MG] amLODIPine [Norvasc] 5 mg PO DAILY 07/23/17 07/23/17 History Allergies Allergy/AdvReac Type Severity Reaction Status Date / Time No Known Allergies Allergy Verified 07/23/17 15:55 Physical Exam Vitals: Vital Signs Temp Pulse Pulse Resp BP BP Pulse Ox 07/24/17 03:19 77 16 07/24/17 03:17 97.0 F L 77 16 154/68 95 07/24/17 00:00 97.2 F L 70 18 151/65 96 07/23/17 20:00 97.4 F L 82 19 147/54 96 07/23/17 18:30 97.1 F L 76 18 134/63 96 07/23/17 18:00 97.4 F L 79 18 116/67 97 07/23/17 17:27 120 H 18 145/105 95 07/23/17 15:19 97.3 F L 82 18 117/64 95 07/23/17 15:15 18 Intake and Output 07/23/17 07/24/17 07/24/17 22:59 06:59 14:59 Intake Total 850 Output Total 300 Balance -300 850 Intake: Intake, IV Titration 850 Amount Potassium Chloride 20 meq 50 In Water For Injection 1 100ml.bag @ 50 mls/hr IVPB ONCE STA Rx#: [id number] Sodium Chloride 0.9% 1, 800 000 ml @ 100 mls/hr IV . Q10H STA Rx#:[id number] Output: Urine 300 Other: Voiding Method Toilet Toilet # Voids 1 Weight 40.823 kg 41.6 kg - Constitutional General appearance: cooperative, no acute distress, thin - EENT Eyes: PERRLA, normal appearance ENT: hard of hearing - Neck Neck: no lymphadenopathy, normal ROM, no rigidity, no stridor, no thyromegaly - Respiratory Respiratory: bilateral: CTA, negative: rales, rhonchi, wheezing - Cardiovascular Rhythm: irregularly irregular Heart sounds: normal: S1, S2 Abnormal Heart Sounds: no systolic murmur, no diastolic murmur - Gastrointestinal General gastrointestinal: normal bowel sounds, soft, no tenderness - Neurologic Neurologic: CNII-XII intact - Psychiatric Psychiatric: A&O x's 3, appropriate affect, intact judgment & insight (Patient is noted to have mild confusion and short-term memory deficit) Unable to palpate dorsalis pedis bilaterally. Feet are cold to touch bilaterally. No wounds are noted. Results CBC & Chem 7: 07/24/17 04:06 07/24/17 04:06 Labs: Abnormal Lab Results - Last 24 Hours (Table) 07/23/17 07/23/17 07/23/17 Range/Units 16:15 16:15 16:15 APTT 21.2 L (22.0-30.0) sec Sodium (137-145) mmol/L Potassium 2.9 L* (3.5-5.1) mmol/L BUN 19 H (7-17) mg/dL Creatinine (0.52-1.04) mg/dL Glucose 178 H (74-99) mg/dL POC Glucose (mg/dL) (75-99) mg/dL Hemoglobin A1c (4.0-6.0) % Calcium (8.4-10.2) mg/dL AST 45 H (14-36) U/L ALT 65 H (9-52) U/L CK-MB (CK-2) 3.2 H* (0.0-2.4) ng/mL Troponin I 0.779 H* (0.000-0.034) ng/mL Total Protein 5.9 L (6.3-8.2) g/dL HDL Cholesterol (40-60) mg/dL Urine Protein (Negative) Urine Glucose (UA) (Negative) Urine Ketones (Negative) Ur Leukocyte Esterase (Negative) Urine Bacteria (None) /hpf Hyaline Casts (0-2) /lpf Urine Mucus (None) /hpf 07/23/17 07/23/17 07/23/17 Range/Units 16:15 16:15 21:32 APTT (22.0-30.0) sec Sodium (137-145) mmol/L Potassium (3.5-5.1) mmol/L BUN (7-17) mg/dL Creatinine (0.52-1.04) mg/dL Glucose (74-99) mg/dL POC Glucose (mg/dL) 247 H (75-99) mg/dL Hemoglobin A1c 9.2 H (4.0-6.0) % Calcium (8.4-10.2) mg/dL AST (14-36) U/L ALT (9-52) U/L CK-MB (CK-2) (0.0-2.4) ng/mL Troponin I (0.000-0.034) ng/mL Total Protein (6.3-8.2) g/dL HDL Cholesterol (40-60) mg/dL Urine Protein 1+ H (Negative) Urine Glucose (UA) 3+ H (Negative) Urine Ketones 1+ H (Negative) Ur Leukocyte Esterase Trace H (Negative) Urine Bacteria Rare H (None) /hpf Hyaline Casts 5 H (0-2) /lpf Urine Mucus Few H (None) /hpf 07/23/17 07/24/17 07/24/17 Range/Units 22:13 04:06 04:06 APTT (22.0-30.0) sec Sodium 136 L (137-145) mmol/L Potassium (3.5-5.1) mmol/L BUN (7-17) mg/dL Creatinine 0.40 L (0.52-1.04) mg/dL Glucose 149 H (74-99) mg/dL POC Glucose (mg/dL) (75-99) mg/dL Hemoglobin A1c (4.0-6.0) % Calcium 7.9 L (8.4-10.2) mg/dL AST (14-36) U/L ALT (9-52) U/L CK-MB (CK-2) 2.8 H* 2.5 H* (0.0-2.4) ng/mL Troponin I 0.662 H* 0.785 H* (0.000-0.034) ng/mL Total Protein (6.3-8.2) g/dL HDL Cholesterol 27 L (40-60) mg/dL Urine Protein (Negative) Urine Glucose (UA) (Negative) Urine Ketones (Negative) Ur Leukocyte Esterase (Negative) Urine Bacteria (None) /hpf Hyaline Casts (0-2) /lpf Urine Mucus (None) /hpf 07/24/17 Range/Units 05:52 APTT (22.0-30.0) sec Sodium (137-145) mmol/L Potassium (3.5-5.1) mmol/L BUN (7-17) mg/dL Creatinine (0.52-1.04) mg/dL Glucose (74-99) mg/dL POC Glucose (mg/dL) 158 H (75-99) mg/dL Hemoglobin A1c (4.0-6.0) % Calcium (8.4-10.2) mg/dL AST (14-36) U/L ALT (9-52) U/L CK-MB (CK-2) (0.0-2.4) ng/mL Troponin I (0.000-0.034) ng/mL Total Protein (6.3-8.2) g/dL HDL Cholesterol (40-60) mg/dL Urine Protein (Negative) Urine Glucose (UA) (Negative) Urine Ketones (Negative) Ur Leukocyte Esterase (Negative) Urine Bacteria (None) /hpf Hyaline Casts (0-2) /lpf Urine Mucus (None) /hpf Microbiology - Last 24 Hours (Table) 07/23/17 16:15 Urine Culture - Preliminary Urine,Voided Thrombosis Risk Factor Assmnt - DVT/VTE Prophylaxis DVT/VTE Prophylaxis: Pharmacologic Prophylaxis ordered - Choose All That Apply Any of the Below Risk Factors Present?: Yes Other Risk Factors: Yes Each Risk Factor Represents 3 Points: Age 75 years or older Other congenital or acquired thrombophilia - If yes, enter type in comment: No Thrombosis Risk Factor Assessment Total Risk Factor Score: 3 Thrombosis Risk Factor Assessment Level: Moderate Risk Assessment and Plan Plan: 1. Generalized weakness secondary to A. fib with RVR, dehydration, hypokalemia , right-sided pleural effusion, COPD. Patient has been admitted to the selective care unit. 2. Atrial fibrillation with RVR with history of paroxysmal atrial fibrillation. Consult with cardiology. Patient placed on Cardizem drip. Continue metoprolol tartrate 25 mg twice daily and eliquis 2.5 mg twice daily. 3. Dehydration with hypokalemia. Patient has been on IV fluid 0.9 normal saline and 100 mL per hour which cannot be discontinued. Potassium replaced. 4. Abdominal pain. Patient denies any abdominal pain at this time. Abdominal x-ray was negative. 5. Peripheral arterial disease. CTA of the abdomen and pelvis ordered for tomorrow. Dr. Fry consult has been added. Arterial Doppler studies ordered for the bilateral lower extremities. Patient is on aspirin 325 mg and eliquis at this time. 6. Right-sided pleural effusion and suspected COPD as patient has long history of smoking. Consult with Dr. Justo lo. Ultrasound of the chest to fátima for thoracentesis. Eliquis is to be on hold. There is concern for underlying mass on CT which will need to be repeated. 7. Diabetes mellitus type 2 uncontrolled with hemoglobin A1c of 9.2. Patient is on Glyxambi at home. Patient started on Prandin 0.5 mg 3 times daily as needed for elevated blood sugars greater than 150, 1 mg for blood sugar greater than 200, 2 mg for blood sugar greater than 250. Patient did not want to receive insulin. 8. Possible pulmonary mass to be further evaluated by repeat CAT scan. 9. Hyperlipidemia continue Lipitor 10 mg at noon next field hypertension. 10. Osteoporosis. Patient is on risedronate at home. 11. Hypertension. Continue Norvasc 5 mg daily Aldactazide 1 daily, Lopressor 25 mg twice daily. 12. DVT prophylaxis. Patient is on eliquis. 13. Gastric intestinal prophylaxis. Pepcid. Patient will be admitted to the hospital for a minimum of 3 night stay. Discharge plan: To be determined. PT and OT added. Impression and plan of care have been directed as dictated by the signing physician. Zita Hedrick nurse practitioner acting as scribe for signing physician.
[2017-07-24] MEDS ORDERED: INSULIN ASPART 100 UNIT/ML 1 ML 10 ML VIAL SQ SCH (12:30)
--- NOTE | 2017-07-24 14:29 | XR ---
EXAMINATION TYPE: XR chest 2V DATE OF EXAM: 07/24/2017 COMPARISON: NONE HISTORY: Shortness of breath TECHNIQUE: Frontal and lateral views of the chest are obtained. FINDINGS: Scattered senescent parenchymal changes noted. Moderate right-sided pleural effusion. Underlying infiltrate or atelectasis noted. No evidence for pn eumothorax. Heart size is stable. Mediastinal structures are stable and grossly unremarkable. No evidence for hilar prominence. Degenerative changes dorsal spine. IMPRESSION: 1. Moderate right-sided pleural effusion. Underlying infiltrate or atelectasis noted. No evidence for pneumothorax.
--- NOTE | 2017-07-24 14:30 | US ---
EXAMINATION TYPE: US chest DATE OF EXAM: 07/24/2017 COMPARISON: CLINICAL HISTORY: bilateraly pl effusions. Bilateral pleural effusion EXAM MEASUREMENTS: Right Pleural Effusion fluid pocket: 10.8 cm Right skin to fluid thickness: 1.4 cm Left Pleural Effusion fluid pocket: 0.9 cm Right side marked for possible thoracentesis outside the dept. Pulmonologists are able to review the images in the patient?s EMR. IMPRESSIONS: Right-sided pleural effusion is noted.
[2017-07-24 16:31] LABS: Glucose,Whole Blood 325 mg/dL (75-99)
[2017-07-24] MEDS ORDERED: ALPRAZolam 0.5 MG TAB PO STA (17:56)
--- NOTE | 2017-07-24 18:52 | CONS ---
CONSULTATION This patient came with multiple medical problems. She is known to me from the office. Patient has history of atrial fibrillation, diabetes mellitus, hypertension, hyperlipidemia. Patient has been falling at home. Patient has no history of rest pain. Patient has had a CT of the chest and abdomen which showed infrarenal aortic occlusion which is chronic in nature. SURGICAL HISTORY: Patient had a bowel resection done in the past. PHYSICAL EXAMINATION: Patient was seen in her room. NECK: Supple. CHEST: Clear. ABDOMEN: Soft. Patient's posterior dorsalis pedis is not palpable. Both feet are warm. There is ulcer noted. IMPRESSION: Infrarenal aortic occlusion. Patient had a CT of abdomen and we will review. At this point patient is asymptomatic from chronic aortic occlusion. Patient will be stabilized from medical point of view and we will follow her in the office. MMODL / IJN: [id number] /
[2017-07-24] MEDS: BUDESONIDE 0.5 MG/2 ML NEBU INHALATION SCH (19:24)
[2017-07-24] MEDS: IPRATROPIUM-ALBUTEROL 3 ML NEB INHALATION PRN (19:24)
[2017-07-24 20:57] LABS: Glucose,Whole Blood 403 mg/dL (75-99)
[2017-07-24] MEDS ORDERED: INSULIN ASPART 100 UNIT/ML 1 ML 10 ML VIAL SQ ONE (21:45)
[2017-07-24] MEDS: ALPRAZolam 0.25 MG TAB PO PRN (21:54)
[2017-07-25 05:54] LABS: Glucose,Whole Blood 259 mg/dL (75-99)
[2017-07-25] MEDS: methylPREDNISolone SOD SUCCI 40 MG/ML 1 ML VIAL IV SCH ×2 (06:14→11:50)
--- NOTE | 2017-07-25 07:55 | ECHOF ---
Referral Reason:nstemi MEASUREMENTS -------- HEIGHT: 165.1 cm WEIGHT: 40.8 kg BP: 154/68 IVSd: 1.4 cm (0.6 - 1.1) LVIDd: 2.7 cm (3.9 - 5.3) LVPWd: 1.2 cm (0.6 - 1.1) IVSs: 1.9 cm LVIDs: 1.6 cm LVPWs: 1.8 cm LAESV Index (A-L): 42.59 ml/m Ao Diam: 2.9 cm (2.0 - 3.7) AV Cusp: 1.4 cm (1.5 - 2.6) LA Diam: 3.6 cm (2.7 - 3.8) MV EXCURSION: 12.234 mm (> 18.000) MV EF SLOPE: 87 mm/s (70 - 150) EPSS: 0.2 cm MV E Sanjeev: 1.24 m/s MV DecT: 254 ms MV A Sanjeev: 1.22 m/s MV E/A Ratio: 1.02 AV maxP.58 mmHg AV meanP.91 mmHg RAP: 5.00 mmHg RVSP: 31.98 mmHg FINDINGS -------- Sinus rhythm. This was a technically adequate study. The left ventricular size is normal. There is moderate concentric left ventricular hypertrophy. O verall left ventricular systolic function is normal with, an EF between 55 - 60 %. The LV end diast olic pressure is elevated 30.81. The right ventricle is normal in size and function. LA is severely dilated >40 ml/m2 The right atrium is normal in size. There is moderate aortic valve sclerosis. Moderate mitral annular calcification present. Moderate mitral regurgitation is present. The pea k and mean MV gradients are 13.45mmHg 4.21mmHg as measured by doppler. Mild mitral stenosis. [id number] tricuspid regurgitation present. There is no evidence of pulmonary hypertension. The right ventricular systolic pressure, as measured by Doppler, is 31.98mmHg. There is no pulmonic regurgitation present. The aortic root size is normal. There is no pericardial effusion. CONCLUSIONS -------- 1. Sinus rhythm. 2. This was a technically adequate study. 3. The left ventricular size is normal. 4. There is moderate concentric left ventricular hypertrophy. 5. Overall left ventricular systolic function is normal with, an EF between 55 - 60 %. 6. The LV end diastolic pressure is elevated 30.81. 7. LA is severely dilated >40 ml/m2 8. There is moderate aortic valve sclerosis. 9. Moderate mitral annular calcification present. 10. Moderate mitral regurgitation is present. 11. The peak and mean MV gradients are 13.45mmHg 4.21mmHg as measured by doppler. 12. Mild mitral stenosis. 13. [id number] tricuspid regurgitation present. 14. There is no evidence of pulmonary hypertension. 15. There is no pulmonic regurgitation present. 16. The aortic root size is normal. 17. There is no pericardial effusion. CUSHION GUM APPLICATOR: Sofy Momin RDCS
[2017-07-25 08:22] LABS: ALT 47 U/L (9-52); AST 22 U/L (14-36); Albumin 2.6 g/dL (3.5-5.0); Alkaline Phosphatase 63 U/L (38-126); Anion Gap 9 mmol/L; Blood Urea Nitrogen 14 mg/dL (7-17); Calcium 8.3 mg/dL (8.4-10.2); Carbon Dioxide 26 mmol/L (22-30); Chloride 103 mmol/L (98-107); Glucose 243 mg/dL (74-99); Potassium 3.6 mmol/L (3.5-5.1); Sodium 138 mmol/L (137-145); Total Bilirubin 0.3 mg/dL (0.2-1.3); Total Protein 4.7 g/dL (6.3-8.2)
[2017-07-25] MEDS: BUDESONIDE 0.5 MG/2 ML NEBU INHALATION SCH ×2 (09:32→19:55)
--- NOTE | 2017-07-25 10:53 | P.PN ---
<Svetlana Spera E - Last Filed: 07/25/17 10:31> Subjective Progress Note Date: 07/25/17 HPI: This is an 79-year-old female patient being seen examined and evaluated for consultation. This patient came in for shortness of breath with exertion and recurrent falls but have been happening more frequently lately. The patient has been experiencing significant pain in her legs and weakness post fall last . She does have a known history of atrial fibrillation and was noted to be in RVR and dehydrated upon admission to the ER. Patient states she's been watching what she decreasing her intake in order to prevent diabetes. According to the family members the patient originally weighed 130 pounds and has been down to 90. She was ultimately admitted to the hospital with atrial fibrillation with RVR, hypokalemia, dehydration and weakness for further evaluation and treatment. Patient is noted to be a half pack per day smoker for approximately 50 years. Upon examination thing up in bed on 2 L of supplemental oxygen via nasal cannula. She denies any use of home oxygen, or nebulizers or MDIs. She has never been worked up in the pulmonary office. She also has had a cough that is congested, no sputum as been able to be brought up. 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 Dr. Chase for vascular surgery was consulted for the occlusion of the aorta. Interval History: 07/25/17- patient is being seen examined and evaluated today on rounds. She did have a chest ultrasound yesterday that did show a 10.8 cm fluid pocket on the right. Patient will undergo a thoracentesis later today. Eliquis is on hold. Risk and benefits of the procedure have been discussed with the patient and her family at length OPTIONS have been answered. She continues to be followed by cardiology. 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 All labs and reports have been reviewed. Objective - Vital Signs Vital signs: Vital Signs Temp 97.2 F L 07/25/17 00:00 Pulse 113 H 07/25/17 08:00 Resp 16 07/25/17 08:00 BP 130/61 07/25/17 08:00 Pulse Ox 95 07/25/17 08:00 Intake & Output 07/24/17 07/25/17 07/25/17 18:59 06:59 18:59 Intake Total 240 0 Output Total 0 Balance 240 0 Weight 41.6 kg 42.3 kg Intake: Oral 240 0 Output: Urine 0 Other: Voiding Method Toilet # Voids 4 - Exam GENERAL EXAM: Alert, thin, frail comfortable in no apparent distress. HEAD: Normocephalic. EYES: Normal reaction of pupils, equal size. NOSE: Clear with pink turbinates. THROAT: No erythema or exudates. NECK: No masses, no JVD. CHEST: No chest wall deformity. LUNGS: Equal air entry with no crackles, wheeze, rhonchi or dullness. CVS: S1 and S2 normal with no audible mumurs, regular rhythm. ABDOMEN: No hepatosplenomegaly, normal bowel sounds, no guarding or rigidity. EXTREMITIES: No edema noted, pedal pulses palpable. CENTRAL NERVOUS SYSTEM: No focal deficits, tone is normal in all 4 extremities. - Labs CBC & Chem 7: 07/24/17 04:06 07/25/17 07:14 Labs: Abnormal Lab Results - Last 24 Hours (Table) 07/24/17 07/24/17 07/24/17 Range/Units 11:52 16:28 20:56 Creatinine (0.52-1.04) mg/dL Glucose (74-99) mg/dL POC Glucose (mg/dL) 216 H 325 H 403 H (75-99) mg/dL Calcium (8.4-10.2) mg/dL Total Protein (6.3-8.2) g/dL Albumin (3.5-5.0) g/dL 07/25/17 07/25/17 Range/Units 05:52 07:14 Creatinine 0.49 L (0.52-1.04) mg/dL Glucose 243 H (74-99) mg/dL POC Glucose (mg/dL) 259 H (75-99) mg/dL Calcium 8.3 L (8.4-10.2) mg/dL Total Protein 4.7 L (6.3-8.2) g/dL Albumin 2.6 L (3.5-5.0) g/dL Microbiology - Last 24 Hours (Table) 07/23/17 16:15 Urine Culture - Final Urine,Voided Assessment and Plan Assessment: Assessment Acute hypoxic respiratory failure requiring supplemental oxygen Bilateral pleural effusions right greater than the left Right-sided lung soft tissue density to be reactive evaluated after pleural effusion has resolved to evaluate for underlying mass 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 fib with RVR Hypokalemia Weakness Plan Thoracentesis this afternoon, risk and benefits have been discussed with the family at length, all questions have been answered. Eliquis on hold until after procedure Vascular surgery on consult for occlusion of intra-renal abdominal aorta Cardiology on consult, appreciate recommendations Medications have been reviewed and will be continued as ordered. Antibiotics and Solu-Medrol taper Continue with pulmonary hygiene, coughing and deep breathing exercises, and supportive care. Supplemental oxygen to maintain oxygen saturations of 92% or better. Continue nebulizer treatments. Continue to monitor and replace electrolytes per protocol GI and DVT prophylaxis. We will continue to monitor labs/results and adjust treatment as necessary. Further recommendations pending. I performed an examination of the patient and discussed their management with the nurse practitioner. I have reviewed the nurse practitioner's note and agree with the documented findings and plan of care. <Ritika Kemp A - Last Filed: 07/25/17 14:06> Objective - Vital Signs Vital signs: Vital Signs Temp 97.2 F L 07/25/17 00:00 Pulse 79 07/25/17 11:45 Resp 16 07/25/17 11:45 BP 123/56 07/25/17 11:45 Pulse Ox 95 07/25/17 13:06 Intake & Output 07/24/17 07/25/17 07/25/17 18:59 06:59 18:59 Intake Total 240 0 Output Total 0 Balance 240 0 Weight 41.6 kg 42.3 kg Intake: Oral 240 0 Output: Urine 0 Other: Voiding Method Toilet Toilet # Voids 4 1 - Labs CBC & Chem 7: 07/24/17 04:06 07/25/17 07:14 Labs: Abnormal Lab Results - Last 24 Hours (Table) 07/24/17 07/24/17 07/25/17 Range/Units 16:28 20:56 05:52 Creatinine (0.52-1.04) mg/dL Glucose (74-99) mg/dL POC Glucose (mg/dL) 325 H 403 H 259 H (75-99) mg/dL Calcium (8.4-10.2) mg/dL Total Protein (6.3-8.2) g/dL Albumin (3.5-5.0) g/dL 07/25/17 07/25/17 Range/Units 07:14 11:34 Creatinine 0.49 L (0.52-1.04) mg/dL Glucose 243 H (74-99) mg/dL POC Glucose (mg/dL) 360 H (75-99) mg/dL Calcium 8.3 L (8.4-10.2) mg/dL Total Protein 4.7 L (6.3-8.2) g/dL Albumin 2.6 L (3.5-5.0) g/dL Microbiology - Last 24 Hours (Table) 07/23/17 16:15 Urine Culture - Final Urine,Voided
--- NOTE | 2017-07-25 11:39 | CT ---
EXAMINATION TYPE: CT angio abdomen pelvis DATE OF EXAM: 07/25/2017 COMPARISON: NONE HISTORY: Abdominal oarta occlusion CT DLP: 423.1 mGycm CONTRAST: CTA thoracic and abdominal aorta with 3-D reconstruction is performed without Oral Contrast and with IV Contrast, patient injected with 100 mL of Isovue 370. Contrast CTA of the abdominal aorta was performed from the lung bases through the base of the pelvis . 3-D reconstruction imaging obtained at a separate workstation. CONTRAST CT ABDOMEN AND PELVIS Moderate right-sided pleural effusion with compressive atelectasis and/or infiltrate right lower lobe . Small left-sided effusion and mild compressive atelectasis seen. ABDOMINAL AORTA: The abdominal aorta is densely calcified. There is occlusion of the abdominal aorta at its infrarenal portion. There are collateral vascular structures seen along the abdominal wall and extending from the internal iliac arteries. Nonopacification of the common iliac arteries. There is opacification of the common femoral arteries bilaterally. Celiac axis, SMA and renal arteries opacify normally. LIVER/GB- No significant abnormality is seen. PANCREAS- No significant abnormality is seen. SPLEEN- No significant abnormality is seen. ADRENALS- No significant abnormality is seen. KIDNEYS/BLADDER- No significant abnormality is seen. BOWEL- No Significant abnormality GENITAL ORGANS: No gross abnormality seen. LYMPH NODES- No greater than 1cm abdominal or pelvic lymph nodes are appreciated. OSSEOUS STRUCTURES- No significant abnormality is seen. OTHER-small amount of ascites noted. IMPRESSION- 1. Complete occlusion infrarenal abdominal aorta with multiple collateral pathways noted overlying th e abdomen and pelvis. 2. Pleural effusions and compressive atelectasis right greater than left. 3. Small amount of ascites.
--- NOTE | 2017-07-25 11:41 | FL ---
Modified barium swallow. HISTORY: Dysphagia. Modified barium swallow was performed with the department of speech pathology. The patient was prese nted with various consistencies of barium. There is no evidence for aspiration or penetration. Full report is to follow from the department of speech pathology. Impression: Normal study.
[2017-07-25] MEDS: GLYXAMBI PO SCH (11:48)
[2017-07-25] MEDS: amLODIPine 5 MG TAB PO SCH (11:48)
[2017-07-25] MEDS: ASPIRIN 81 MG PO SCH (11:48)
[2017-07-25] MEDS: CALCIUM CARB-VIT D 500MG-200UN 1 EACH TAB PO SCH (11:48)
[2017-07-25] MEDS: ASCORBIC ACID 500 MG TAB PO SCH (11:48)
[2017-07-25] MEDS: SPIRONOLACTONE-HCTZ 25-25MG 1 EACH TAB PO SCH (11:49)
[2017-07-25] MEDS: METOPROLOL TARTRATE 25 MG TAB PO SCH ×3 (11:49→19:42)
[2017-07-25] MEDS: MULTIVITAMINS, THERA 1 EACH TAB PO SCH (11:50)
[2017-07-25] MEDS: ATORVASTATIN 10 MG TAB PO SCH (11:50)
[2017-07-25] MEDS: LEVOFLOXACIN 500 MG TAB PO SCH (11:50)
[2017-07-25 12:20] LABS: Glucose,Whole Blood 360 mg/dL (75-99)
[2017-07-25] MEDS ORDERED: amLODIPine 2.5 MG TAB PO SCH (13:19)
--- NOTE | 2017-07-25 14:11 | P.PCN ---
Date of Procedure: 07/25/17 Preoperative Diagnosis: Moderate right pleural effusion Postoperative Diagnosis: Same Procedure(s) Performed: Right thoracentesis Estimated Blood Loss (ml): 0 Condition: stable Disposition: no change Indications for Procedure: Moderate right pleural effusion Description of Procedure: A time-out was completed verifying correct patient, procedure, site, positioning , and special equipment if applicable. The patient's right side was prepped and draped in a sterile manner after the appropriate infiltration level was confirmed by ultrasound. 1% lidocaine was used anesthetize the surrounding skin. A finder needle was then used to locate fluid and joe fluid was obtained. A 10-blade scalpel used to make the incision. The thoracentesis catheter was then threaded without difficulty. The patient had 1700cc of joe fluid removed. A post-procedure chest x-ray was ordered and the fluid will be sent for several studies. Estimated Blood Loss: 0 cc The patient tolerated the procedure well and there were no complications.
[2017-07-25 15:21] LABS: Total Protein 4.8 g/dL (6.3-8.2)
[2017-07-25 16:56] LABS: Glucose,Whole Blood 422 mg/dL (75-99)
--- NOTE | 2017-07-25 16:59 | XR ---
EXAMINATION TYPE: XR chest 1V portable DATE OF EXAM: 07/25/2017 COMPARISON: 07/24/2017 HISTORY: Postthoracentesis TECHNIQUE: Single frontal view of the chest is obtained. FINDINGS: Portable single view upright shows small right pleural effusion. There is patchy infiltrat e in the right lower lobe. There is no heart failure. There is no sign of a pneumothorax. IMPRESSION: Right pleural effusion is significantly less than exam yesterday. Infiltrate and atelect asis in the right lower lobe.
[2017-07-25] MEDS: POTASSIUM CHLORIDE ER 10 MEQ TAB.ER.PRT PO SCH (17:00)
[2017-07-25] MEDS: REPAGLINIDE 1 MG TAB PO SCH (17:00)
[2017-07-25] MEDS: FUROSEMIDE 20 MG TAB PO SCH (17:00)
[2017-07-25] MEDS ORDERED: INSULIN ASPART 100 UNIT/ML 1 ML 10 ML VIAL SQ ONE (17:08)
[2017-07-25] MEDS ORDERED: INSULIN NPH 300 UNIT/3 ML VIAL SQ STA (17:11)
[2017-07-25 19:30] LABS: Appearance,BF Cloudy; Color,BF Yellow
[2017-07-25] MEDS ORDERED: KETOROLAC 30 MG/ML 1 ML VIAL IVP PRN (19:33)
[2017-07-25] MEDS ORDERED: ACETAMINOPHEN TAB 325 MG TAB PO PRN (19:34)
[2017-07-25] MEDS: ALPRAZolam 0.25 MG TAB PO PRN (19:41)
[2017-07-25] MEDS: IPRATROPIUM-ALBUTEROL 3 ML NEB INHALATION PRN (19:55)
[2017-07-25 20:13] LABS: Nucleated Cells, Body Fluid 140 /uL; RBC, Body Fluid 2840 /uL
[2017-07-25 20:14] LABS: Mononuclear WBC,Body Fluid 67 %; Polynuclear WBC,Body Fluid 33 %; Total Cells Counted,Body Fluid 100
[2017-07-25] MEDS ORDERED: methylPREDNISolone SOD SUCCI 40 MG/ML 1 ML VIAL IV SCH (21:00)
[2017-07-25 21:09] LABS: Glucose,Whole Blood 132 mg/dL (75-99)
[2017-07-25 21:11] LABS: Total Protein, Body Fluid 2900 mg/dL
[2017-07-26 05:53] LABS: Glucose,Whole Blood 233 mg/dL (75-99)
[2017-07-26] MEDS: REPAGLINIDE 1 MG TAB PO SCH (06:59)
--- NOTE | 2017-07-26 07:23 | XR ---
EXAMINATION TYPE: XR chest 2V DATE OF EXAM: 07/26/2017 COMPARISON: 07/25/2017 HISTORY: Pleural effusion postthoracentesis. Shortness of breath. TECHNIQUE: Frontal and lateral views of the chest are obtained. FINDINGS: There is interval resolution of the previously seen trace right pleural effusion. Focal ri ght lower lung, likely right middle lobe and right lower lobe, airspace disease and a reticular patte rn is stable from the prior. Remainder the lungs are clear. Biapical lucency suggests underlying COPD . Minimal biapical pleural thickening is noted. Retained oral contrast from recent examinations prese nt within a nondilated visualized portions of the colon. There is mild osseous demineralization. Dens e mitral calcifications are incidentally seen. IMPRESSION: Persistent right basilar opacity suspicious for pneumonia. Resolved right pleural effusi on.
--- NOTE | 2017-07-26 08:14 | P.PN ---
Subjective Progress Note Date: 07/25/17 This an 81-year-old female patient of Dr. Velazquez with a past history for paroxysmal atrial fibrillation, diabetes mellitus hypertension, hyperlipidemia, short-term memory deficit, previous bowel obstruction status post resection. Per patient and her family she has had increasing weakness and falls. She complains of pains in her legs in one or both of been going on for couple weeks off and on. The pain is more so when she is walking and feels like leg cramps. At rest the pain goes away. She denies any back pain. She also complains of shortness of breath especially with minimal ambulation.. She did have a fall last week and came in as an outpatient for x-rays of the right hip and pelvis that showed no acute fracture or dislocation. Moderate femoral acetabular arthropathy bilaterally. Small cam deformity of the right femoral head and neck junction with predisposes the patient to internal impingement. These were ordered by her assistant winemaker Dr. Munoz. She recently started using a cane. They have also set up [employer] which arrived yesterday. Patient has recently had a weight gain of 6 pounds but is very thin and daughter states that she does not eat much because she is trying to keep her blood sugars down. Patient is an active smoker currently down to 3 cigarettes per day and she does not want a patch. Daughter also states patient was having abdominal pain yesterday. Patient denies any pain at this time. The patient was brought in by family to [facility] emergency center for evaluation. EKG was A. fib with a rate of 129. She was afebrile. Her white count was normal, hemoglobin 14.4, potassium only 2.9, BUN 19 and creatinine 0.6. Blood sugar was 178. Troponin was 0.779, AST 45 and ALT 65. Urinalysis was clear with nitrate and leukoesterase negative, bacteria rare. Abdominal x-ray and he means and chest x-ray moderate right pleural effusion. Patient was admitted to the selective care unit and cardiology consult requested. Patient was placed on Cardizem drip and echocardiogram ordered. Patient is now in normal sinus rhythm. Repeat potassium this morning is 3.5. Repeat troponins are 0.662 and 0.785. Triglycerides 91, cholesterol 79, LDL 34 , HDL 27, TSH 2.449. Hemoglobin A1c is 9.2. Consults requested with pulmonary medicine and cardiology. 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 Chronicity is unknown. Abdomen and pelvis CTA is recommended. There is a large right pleural effusion and associated multifocal subsegmental atelectasis additionally there is a right infrahilar soft tissue density that should be reevaluated after resolution of the effusion to evaluate for underlying mass. Trace left pleural effusion and left basilar subsegmental atelectasis. CTA of the abdomen and pelvis is been ordered. Consult with Dr. Fry. 07/25: Chest ultrasound shows a right pleural effusion pocket 10.8 cm and left 0.[address] Kemp is planning on thoracentesis today. Echocardiogram shows moderate concentric left hypertrophy, EF 55-60%, LA severely dilated greater than 40, moderate mitral regurgitation, moderate aortic valve sclerosis, moderate tricuspid regurgitation, no pulmonary hypertension. Cardiology has discussed anticoagulation with the patient and family and this will be determined. Lopressor was increased to 25 mg 3 times daily. Patient has been seen by Dr. Monge with recommendations to follow up in the office. CT angiogram of the abdomen and pelvis is scheduled for today. Ultrasound of the anterior lower extremities has been obtained and report is pending. Blood sugars have been extremely elevated running up to 400. Random and added as scheduled medication. Urine culture is finalized with no growth. Patient has been evaluated by speech therapy with recommendations for modified barium swallow to rule out silent aspiration. Physical therapy/occupational therapy recommending home care with 24-hour supervision. Objective - Vital Signs Vital signs: Vital Signs Temp 97.2 F L 07/25/17 00:00 Pulse 113 H 07/25/17 08:00 Resp 16 07/25/17 08:00 BP 130/61 07/25/17 08:00 Pulse Ox 95 07/25/17 08:00 Intake & Output 07/24/17 07/25/17 07/25/17 18:59 06:59 18:59 Intake Total 240 0 Output Total 0 Balance 240 0 Weight 41.6 kg 42.3 kg Intake: Oral 240 0 Output: Urine 0 Other: Voiding Method Toilet Toilet # Voids 4 - Exam General appearance: cooperative, no acute distress, thin - EENT Eyes: PERRLA, normal appearance ENT: hard of hearing - Neck Neck: no lymphadenopathy, normal ROM, no rigidity, no stridor, no thyromegaly - Respiratory Respiratory: bilateral: CTA, negative: rales, rhonchi, wheezing - Cardiovascular Rhythm: irregularly irregular Heart sounds: normal: S1, S2 Abnormal Heart Sounds: no systolic murmur, no diastolic murmur - Gastrointestinal General gastrointestinal: normal bowel sounds, soft, no tenderness - Neurologic Neurologic: CNII-XII intact - Psychiatric Psychiatric: A&O x's 3, appropriate affect, intact judgment & insight (Patient is noted to have mild confusion and short-term memory deficit) Unable to palpate dorsalis pedis bilaterally. Feet are cold to touch bilaterally. No wounds are noted. - Labs CBC & Chem 7: 07/24/17 04:06 07/25/17 07:14 Labs: Abnormal Lab Results - Last 24 Hours (Table) 07/24/17 07/24/17 07/24/17 Range/Units 11:52 16:28 20:56 Creatinine (0.52-1.04) mg/dL Glucose (74-99) mg/dL POC Glucose (mg/dL) 216 H 325 H 403 H (75-99) mg/dL Calcium (8.4-10.2) mg/dL Total Protein (6.3-8.2) g/dL Albumin (3.5-5.0) g/dL 07/25/17 07/25/17 Range/Units 05:52 07:14 Creatinine 0.49 L (0.52-1.04) mg/dL Glucose 243 H (74-99) mg/dL POC Glucose (mg/dL) 259 H (75-99) mg/dL Calcium 8.3 L (8.4-10.2) mg/dL Total Protein 4.7 L (6.3-8.2) g/dL Albumin 2.6 L (3.5-5.0) g/dL Microbiology - Last 24 Hours (Table) 07/23/17 16:15 Urine Culture - Final Urine,Voided Assessment and Plan Plan: 1. Generalized weakness secondary to A. fib with RVR, dehydration, hypokalemia , right-sided pleural effusion, COPD. Patient has been admitted to the selective care unit. 2. Atrial fibrillation with RVR with history of paroxysmal atrial fibrillation. Consult with cardiology. Patient placed on Cardizem drip. Continue metoprolol tartrate 25 mg twice daily and eliquis 2.5 mg twice daily. 3. Dehydration with hypokalemia. Patient has been on IV fluid 0.9 normal saline and 100 mL per hour which cannot be discontinued. Potassium replaced. 4. Abdominal pain. Patient denies any abdominal pain at this time. Abdominal x-ray was negative. 5. Peripheral arterial disease. CTA of the abdomen and pelvis ordered for tomorrow. Dr. Fry consult has been added. Arterial Doppler studies ordered for the bilateral lower extremities. Patient is on aspirin 325 mg and eliquis at this time. 6. Right-sided pleural effusion and suspected COPD as patient has long history of smoking. Consult with Dr. Kemp appreciated. Ultrasound of the chest to fátima for thoracentesis. Eliquis is to be on hold. There is concern for underlying mass on CT which will need to be repeated. 7. Diabetes mellitus type 2 uncontrolled with hemoglobin A1c of 9.2. Patient is on Glyxambi at home. Patient started on Prandin 0.5 mg 3 times daily as needed for elevated blood sugars greater than 150, 1 mg for blood sugar greater than 200, 2 mg for blood sugar greater than 250. Patient did not want to receive insulin. 8. Possible pulmonary mass to be further evaluated by repeat CAT scan. 9. Hyperlipidemia continue Lipitor 10 mg at noon next field hypertension. 10. Osteoporosis. Patient is on risedronate at home. 11. Hypertension. Continue Norvasc 5 mg daily Aldactazide 1 daily, Lopressor 25 mg twice daily. 12. DVT prophylaxis. Patient is on eliquis. 13. Gastric intestinal prophylaxis. Pepcid. Discharge plan: home Impression and plan of care have been directed as dictated by the signing physician. Zita Hedrick nurse practitioner acting as scribe for signing physician.
[2017-07-26] MEDS: ASPIRIN 81 MG PO SCH (08:45)
[2017-07-26] MEDS: METOPROLOL TARTRATE 25 MG TAB PO SCH (08:45)
[2017-07-26] MEDS: LEVOFLOXACIN 500 MG TAB PO SCH (08:45)
[2017-07-26] MEDS: SPIRONOLACTONE-HCTZ 25-25MG 1 EACH TAB PO SCH (08:45)
[2017-07-26] MEDS: ATORVASTATIN 10 MG TAB PO SCH (08:46)
[2017-07-26] MEDS: CALCIUM CARB-VIT D 500MG-200UN 1 EACH TAB PO SCH (08:46)
[2017-07-26] MEDS: ASCORBIC ACID 500 MG TAB PO SCH (08:46)
[2017-07-26] MEDS: MULTIVITAMINS, THERA 1 EACH TAB PO SCH (08:46)
[2017-07-26] MEDS: FUROSEMIDE 20 MG TAB PO SCH (08:46)
[2017-07-26] MEDS: POTASSIUM CHLORIDE ER 10 MEQ TAB.ER.PRT PO SCH (08:47)
[2017-07-26] MEDS: GLYXAMBI PO SCH (08:48)
[2017-07-26] MEDS ORDERED: predniSONE 20 MG TAB PO SCH (09:00)
[2017-07-26] MEDS: BUDESONIDE 0.5 MG/2 ML NEBU INHALATION SCH (09:20)
[2017-07-26] MEDS: IPRATROPIUM-ALBUTEROL 3 ML NEB INHALATION PRN (09:20)
--- NOTE | 2017-07-26 10:01 | P.PN ---
Subjective Progress Note Date: 07/26/17 HPI: This is an 79-year-old female patient being seen examined and evaluated for consultation. This patient came in for shortness of breath with exertion and recurrent falls but have been happening more frequently lately. The patient has been experiencing significant pain in her legs and weakness post fall last . She does have a known history of atrial fibrillation and was noted to be in RVR and dehydrated upon admission to the ER. Patient states she's been watching what she decreasing her intake in order to prevent diabetes. According to the family members the patient originally weighed 130 pounds and has been down to 90. She was ultimately admitted to the hospital with atrial fibrillation with RVR, hypokalemia, dehydration and weakness for further evaluation and treatment. Patient is noted to be a half pack per day smoker for approximately 50 years. Upon examination thing up in bed on 2 L of supplemental oxygen via nasal cannula. She denies any use of home oxygen, or nebulizers or MDIs. She has never been worked up in the pulmonary office. She also has had a cough that is congested, no sputum as been able to be brought up. 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 Dr. Chase for vascular surgery was consulted for the occlusion of the aorta. Interval History: 07/25/17- patient is being seen examined and evaluated today on rounds. She did have a chest ultrasound yesterday that did show a 10.8 cm fluid pocket on the right. Patient will undergo a thoracentesis later today. Eliquis is on hold. Risk and benefits of the procedure have been discussed with the patient and her family at length OPTIONS have been answered. She continues to be followed by cardiology. 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 All labs and reports have been reviewed. 07/26/17-patient is being seen examined and evaluated today on rounds. She did undergo a thoracentesis yesterday with 1700 MLS of joe fluid removed. Thoracentesis fluid was sent to the lab for workup. Chest x-ray is consistent with persistent right basilar opacities suspicious for pneumonia and the right pleural effusion is now resolved. Upon examination the patient's resting up in bed on room air states she is breathing much better today. Has a persistent cough however is less severe. Patient has being potentially discharged home today with home health services. Objective - Vital Signs Vital signs: Vital Signs Temp 97.2 F L 07/26/17 04:00 Pulse 68 07/26/17 09:32 Resp 18 07/26/17 04:00 BP 134/79 07/26/17 04:00 Pulse Ox 97 07/26/17 04:00 Intake & Output 07/25/17 07/26/17 07/26/17 18:59 06:59 18:59 Intake Total 840 240 240 Output Total 0 Balance 840 240 240 Weight 40.6 kg Intake: Oral 840 240 240 Output: Urine 0 Other: Voiding Method Toilet Toilet # Voids 1 2 # Bowel Movements 2 - Exam GENERAL EXAM: Alert, thin, frail comfortable in no apparent distress. HEAD: Normocephalic. EYES: Normal reaction of pupils, equal size. NOSE: Clear with pink turbinates. THROAT: No erythema or exudates. NECK: No masses, no JVD. CHEST: No chest wall deformity. LUNGS: Equal air entry with no crackles, wheeze, rhonchi or dullness. CVS: S1 and S2 normal with no audible mumurs, regular rhythm. ABDOMEN: No hepatosplenomegaly, normal bowel sounds, no guarding or rigidity. EXTREMITIES: No edema noted, pedal pulses palpable. CENTRAL NERVOUS SYSTEM: No focal deficits, tone is normal in all 4 extremities. - Labs CBC & Chem 7: 07/24/17 04:06 07/25/17 07:14 Labs: Abnormal Lab Results - Last 24 Hours (Table) 07/25/17 07/25/17 07/25/17 Range/Units 11:34 14:55 16:55 POC Glucose (mg/dL) 360 H 422 H (75-99) mg/dL Total Protein 4.8 L (6.3-8.2) g/dL 07/25/17 07/26/17 Range/Units 21:08 05:52 POC Glucose (mg/dL) 132 H 233 H (75-99) mg/dL Total Protein (6.3-8.2) g/dL Microbiology - Last 24 Hours (Table) 07/25/17 14:08 Gram Stain - Preliminary Pleural Fluid Body Fluid Culture - Preliminary Assessment and Plan Assessment: Assessment Acute hypoxic respiratory failure requiring supplemental oxygen Bilateral pleural effusions right greater than the left Right-sided lung soft tissue density to be reactive evaluated after pleural effusion has resolved to evaluate for underlying mass 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 fib with RVR Hypokalemia Weakness Plan Patient could be cleared for discharge from a pulmonary standpoint Thoracentesis with 1700 ML's of joe fluid removed on 07/25/2017 sent to the lab for workup Eliquis on hold until after procedure Vascular surgery on consult for occlusion of intra-renal abdominal aorta Cardiology on consult, appreciate recommendations Medications have been reviewed and will be continued as ordered. Antibiotics and steroid taper Continue with pulmonary hygiene, coughing and deep breathing exercises, and supportive care. Supplemental oxygen to maintain oxygen saturations of 92% or better. Continue nebulizer treatments. Continue to monitor and replace electrolytes per protocol GI and DVT prophylaxis. We will continue to monitor labs/results and adjust treatment as necessary. Further recommendations pending. I performed an examination of the patient and discussed their management with the nurse practitioner. I have reviewed the nurse practitioner's note and agree with the documented findings and plan of care.
[2017-07-26 10:18] VITALS: BP 134/57; PULSE 80; RESP 20; TEMP 98.7
[2017-07-26 10:37] VITALS: BMI 14.8
[2017-07-26] MEDS ORDERED: REPAGLINIDE 1 MG TAB PO SCH (12:30)
--- NOTE | 2017-07-26 15:02 | P.DS ---
Providers Date of admission: 07/23/17 17:36 Expected date of discharge: 07/26/17 Attending physician: Kenan Biswas Consults: 07/23/17 17:36 Consult Physician Urgent Consulting Provider: Bessy Carrasco Consult Reason/Comments: afib Do you want consulting provider notified?: Yes 07/24/17 09:03 Consult Physician Routine Consulting Provider: Mohit Hunt Consult Reason/Comments: pleural eff, copd Do you want consulting provider notified?: Yes 07/24/17 10:50 Consult Physician Urgent Consulting Provider: Bobo Fry Consult Reason/Comments: complete occlusion of aorta Do you want consulting provider notified?: Yes Primary care physician: [facility] Course: This an 81-year-old female patient of Dr. Velazquez with a past history for paroxysmal atrial fibrillation, diabetes mellitus hypertension, hyperlipidemia, short-term memory deficit, previous bowel obstruction status post resection. Per patient and her family she has had increasing weakness and falls. She complains of pains in her legs in one or both of been going on for couple weeks off and on. The pain is more so when she is walking and feels like leg cramps. At rest the pain goes away. She denies any back pain. She also complains of shortness of breath especially with minimal ambulation.. She did have a fall last week and came in as an outpatient for x-rays of the right hip and pelvis that showed no acute fracture or dislocation. Moderate femoral acetabular arthropathy bilaterally. Small cam deformity of the right femoral head and neck junction with predisposes the patient to internal impingement. These were ordered by her church supervisor Dr. Munoz. She recently started using a cane. They have also set up [employer] which arrived yesterday. Patient has recently had a weight gain of 6 pounds but is very thin and daughter states that she does not eat much because she is trying to keep her blood sugars down. Patient is an active smoker currently down to 3 cigarettes per day and she does not want a patch. Daughter also states patient was having abdominal pain yesterday. Patient denies any pain at this time. The patient was brought in by family to [facility] emergency center for evaluation. EKG was A. fib with a rate of 129. She was afebrile. Her white count was normal, hemoglobin 14.4, potassium only 2.9, BUN 19 and creatinine 0.6. Blood sugar was 178. Troponin was 0.779, AST 45 and ALT 65. Urinalysis was clear with nitrate and leukoesterase negative, bacteria rare. Abdominal x-ray and he means and chest x-ray moderate right pleural effusion. Patient was admitted to the selective care unit and cardiology consult requested. Patient was placed on Cardizem drip and echocardiogram ordered. Patient is now in normal sinus rhythm. Repeat potassium this morning is 3.5. Repeat troponins are 0.662 and 0.785. Triglycerides 91, cholesterol 79, LDL 34 , HDL 27, TSH 2.449. Hemoglobin A1c is 9.2. Consults requested with pulmonary medicine and cardiology. 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 Chronicity is unknown. Abdomen and pelvis CTA is recommended. There is a large right pleural effusion and associated multifocal subsegmental atelectasis additionally there is a right infrahilar soft tissue density that should be reevaluated after resolution of the effusion to evaluate for underlying mass. Trace left pleural effusion and left basilar subsegmental atelectasis. CTA of the abdomen and pelvis is been ordered. Consult with Dr. Fry. 07/25: Chest ultrasound shows a right pleural effusion pocket 10.8 cm and left 0.[address] Kemp is planning on thoracentesis today. Echocardiogram shows moderate concentric left hypertrophy, EF 55-60%, LA severely dilated greater than 40, moderate mitral regurgitation, moderate aortic valve sclerosis, moderate tricuspid regurgitation, no pulmonary hypertension. Cardiology has discussed anticoagulation with the patient and family and this will be determined. Lopressor was increased to 25 mg 3 times daily. Patient has been seen by Dr. Monge with recommendations to follow up in the office. CT angiogram of the abdomen and pelvis is scheduled for today. Ultrasound of the anterior lower extremities has been obtained and report is pending. Blood sugars have been extremely elevated running up to 400. Random and added as scheduled medication. Urine culture is finalized with no growth. Patient has been evaluated by speech therapy with recommendations for modified barium swallow to rule out silent aspiration. Physical therapy/occupational therapy recommending home care with 24-hour supervision. 07/26: Thoracentesis done yesterday by Dr. Kemp with removal of 1700 mL of joe fluid. 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 Pleural effusions and compressive atelectasis right greater than left. Small amount of ascites. Patient will be discharged on inhalers. Modified barium swallow was negative. A walker will be ordered for the patient. Cardiology is recommending holding lenora and she' ll follow-up with Dr. Munoz. Pulse ox is 97% on 2 L nasal cannula. Patient will be discharged home today in stable condition. Discharge diagnoses: 1. Generalized weakness secondary to A. fib with RVR, dehydration, hypokalemia , right-sided pleural effusion, COPD, peripheral arterial disease. 2. Atrial fibrillation with RVR with history of paroxysmal atrial fibrillation. 3. Dehydration with hypokalemia. 4. Abdominal pain. 5. Peripheral arterial disease. 6. Right-sided pleural effusion and COPD with acute tracheobronchitis as patient has long history of smoking. 7. Diabetes mellitus type 2 uncontrolled with hemoglobin A1c of 9.2. 8. Possible pulmonary mass to be further evaluated by repeat CAT scan. 9. Hyperlipidemia 10. Osteoporosis. 11. Hypertension. Discharge plan: home Impression and plan of care have been directed as dictated by the signing physician. Zita Hedrick nurse practitioner acting as scribe for signing physician. Patient Condition at Discharge: Good Plan - Discharge Summary Discharge Rx Participant: No New Discharge Prescriptions: New Furosemide [Lasix] 20 mg PO DAILY #30 tab Levofloxacin [Levaquin] 500 mg PO Q24H #5 tab Metoprolol Tartrate [Lopressor] 25 mg PO TID #90 tab predniSONE 0 mg PO DIRECTED #30 tab Repaglinide [Prandin] 1 mg PO AC-TID #90 tab Spironolactone-Hctz 25-25Mg [Aldactazide 25-25 MG] 1 each PO BID #60 tab Empagliflozin/Linagliptin [Glyxambi 25 mg-5 mg Tablet] 1 tab PO DAILY #30 Aspirin EC [Ecotrin Low Dose] 81 mg PO DAILY #30 tablet. BudesonideJohnnyFormot 160-4.5 Mcg [Symbicort 160-4.5 Mcg Inhaler] 2 puff INHALATION BID #1 inhaler Ipratropium/Albuterol Sulfate [Combivent Respimat Inhaler] 2 puff INHALATION QID #1 inhaler Continue Risedronate Sodium [Actonel] 35 mg PO WE Multivitamins, Thera [Multivitamin (formulary)] 1 tab PO DAILY amLODIPine [Norvasc] 5 mg PO DAILY Calcium Carbonate/Vitamin D3 [Calcium 600-Vit D3 400 Caplet] 1 tab PO DAILY Atorvastatin [Lipitor] 10 mg PO DAILY@1200 Ascorbic Acid [Vitamin C] 500 mg PO DAILY Apixaban [Eliquis] 2.5 mg PO BID Changed Empagliflozin/Linagliptin [Glyxambi 25 mg-5 mg Tablet] 1 tab PO DAILY #30 tablet Discontinued Spironolact/Hydrochlorothiazid [Aldactazide 25-25 MG] 1 tab PO DAILY Metoprolol Tartrate [Lopressor] 25 mg PO BID Discharge Medication List Apixaban [Eliquis] 2.5 mg PO BID 07/23/17 [History] Ascorbic Acid [Vitamin C] 500 mg PO DAILY 07/23/17 [History] Atorvastatin [Lipitor] 10 mg PO DAILY@1200 07/23/17 [History] Calcium Carbonate/Vitamin D3 [Calcium 600-Vit D3 400 Caplet] 1 tab PO DAILY 07/05 [History] Multivitamins, Thera [Multivitamin (formulary)] 1 tab PO DAILY 07/23/17 [History ] Risedronate Sodium [Actonel] 35 mg PO WE 07/23/17 [History] amLODIPine [Norvasc] 5 mg PO DAILY 07/23/17 [History] Aspirin EC [Ecotrin Low Dose] 81 mg PO DAILY #30 tablet. 07/26/17 [Rx] Budesonide-Formot 160-4.5 Mcg [Symbicort 160-4.5 Mcg Inhaler] 2 puff INHALATION BID #1 inhaler 07/26/17 [Rx] Empagliflozin/Linagliptin [Glyxambi 25 mg-5 mg Tablet] 1 tab PO DAILY #30 [Rx] Empagliflozin/Linagliptin [Glyxambi 25 mg-5 mg Tablet] 1 tab PO DAILY #30 tablet 07/26/17 [Rx] Furosemide [Lasix] 20 mg PO DAILY #30 tab 07/26/17 [Rx] Ipratropium/Albuterol Sulfate [Combivent Respimat Inhaler] 2 puff INHALATION QID #1 inhaler 07/26/17 [Rx] Levofloxacin [Levaquin] 500 mg PO Q24H #5 tab 07/26/17 [Rx] Metoprolol Tartrate [Lopressor] 25 mg PO TID #90 tab 07/26/17 [Rx] Repaglinide [Prandin] 1 mg PO AC-TID #90 tab 07/26/17 [Rx] Spironolactone-Hctz 25-25Mg [Aldactazide 25-25 MG] 1 each PO BID #60 tab [Rx] predniSONE 0 mg PO DIRECTED #30 tab 07/26/17 [Rx] Follow up Appointment(s)/Referral(s): Ritika Kemp DO [Doctor of Osteopathic Medicine] - 07/29/17 11:30 am (SATURDAY) [facility], [NON-STAFF] - As Needed Lowell Velazquez DO [Primary Care Provider] - 3 Days (SPOKE TO MRI TECH. OFFICE WILL CALL WITH APPOINTMENT TIME) Toan Monge MD [STAFF PHYSICIAN] - 08/01/17 9:00 am (SATURDAY) Beto Munoz MD [STAFF PHYSICIAN] - 08/06/17 4:30 pm (SATURDAY AT [facility]) Patient Instructions/Handouts: A-fib (Atrial Fibrillation) (DC), COPD (Chronic Obstructive Pulmonary Disease) (DC) Activity/Diet/Wound Care/Special Instructions: [facility] for [phone]. They will deliver to your house. Discharge Disposition: HOME WITH HOME HEALTH SERVICES
--- NOTE | 2017-07-30 08:20 | CDI ---
Last Revision, January 2017 Documentation Clarification Form Date: 07/30/2017 From: Susan Michael Karen Baker, [employer] Hours-8:30 am & 5 pm Josselin Admit Date: 07/23/2017 5:36:00 PM Patient Name: Ha Nick Visit Number: [id number] Discharge Date: 07/26/17 ATTENTION: The Clinical Documentation Specialists (CDI) and [facility] Coding Staff appreciate your assistance in clarifying documentation. Please respond to the clarification below the line at the bottom and electronically sign. The CDI & [facility] Coding staff will review the response and follow-up if needed. Please note: Queries are made part of the Legal Health Record. If you have any questions, please contact the author of this message via ITS. Dr. Ana Tabares The patient has uncontrolled diabetes Type II as indicated in H&P, 07/25 PN and DS. POC glucose: 247, 158, 316, 325, 403, 259, 360, 422, 132, 233 Glucose: 178, 149, 243 Hemoglobin A1c: 9.2 Treatment: Cover with NovoLog sliding scale Per [facility] 2016 - query the provider for clarification whether the patient has hyperglycemia or hypoglycemia so that the appropriate code may be reported - uncontrolled diabetes indicates that the patient's blood sugar is not at an acceptable level, because it is either too high or too low. In order to capture the severity of Illness and necessary documentation specificity, please clarify if Type 2 uncontrolled diabetes is: Hyperglycemia Hypoglycemia Other, please specify Unable to Determine Please continue to document in your progress notes and discharge summary in order to capture severity of illness and risk of mortality. Include clinical findings that support your diagnosis. MTDD
--- NOTE | 2017-07-30 10:48 | P.ARTDOP ---
Arterial Doppler LOWER EXTREMITY ARTERIAL DOPPLER: DATE OF SERVICE: 07/30/2017 Reason for study: Lower extremity weakness. Doppler waveforms: Atypical at femoral and popliteal on the right and femoral on the left. Monophasic below.. Pulse volume recording: Blunted throughout. Pressure gradients: Above 5 level and unable to get good pressures anywhere in the right leg. Ankle-brachial indices: Not accurately recordable. Toe pressures: [] on the right, [] on the left Impression: Severe aortoiliac occlusive disease. Clinical correlation recommended..
== END 2017-07-26 11:40 | disposition home health service (06) | DRG 308 ==
LOC: EC 14:54 → 6SEL 17:36
PROVIDERS: ADMIT Internal Medicine; ATTEND Internal Medicine
PROC: 0W993ZX Drainage of Right Pleural Cavity, Percutaneous Approach, Diagnostic (ICD-10-PCS; principal; 2017-07-25)
DX: I48.0 Paroxysmal atrial fibrillation (principal); J96.01 Acute respiratory failure with hypoxia; J98.11 Atelectasis; J90 Pleural effusion, not elsewhere classified; E46 Unspecified protein-calorie malnutrition; Z68.1 Body mass index [BMI] 19.9 or less, adult; J44.0 Chronic obstructive pulmonary disease with (acute) lower respiratory infection; E11.51 Type 2 diabetes mellitus with diabetic peripheral angiopathy without gangrene; E86.0 Dehydration; E11.65 Type 2 diabetes mellitus with hyperglycemia; J20.9 Acute bronchitis, unspecified; R15.9 Full incontinence of feces; I08.3 Combined rheumatic disorders of mitral, aortic and tricuspid valves; E87.6 Hypokalemia; E03.9 Hypothyroidism, unspecified; E78.5 Hyperlipidemia, unspecified; I70.0 Atherosclerosis of aorta; I10 Essential (primary) hypertension; F41.9 Anxiety disorder, unspecified; R32 Unspecified urinary incontinence; M81.0 Age-related osteoporosis without current pathological fracture; R91.8 Other nonspecific abnormal finding of lung field; M12.9 Arthropathy, unspecified; R77.9 Abnormality of plasma protein, unspecified; R26.81 Unsteadiness on feet; R29.6 Repeated falls; Z71.3 Dietary counseling and surveillance; F17.210 Nicotine dependence, cigarettes, uncomplicated; Z71.6 Tobacco abuse counseling; Z79.01 Long term (current) use of anticoagulants; Z79.84 Long term (current) use of oral hypoglycemic drugs; Z79.83 Long term (current) use of bisphosphonates; Z79.899 Other long term (current) drug therapy; Z91.81 History of falling; Z98.42 Cataract extraction status, left eye; Z98.41 Cataract extraction status, right eye; Z98.51 Tubal ligation status; Z96.1 Presence of intraocular lens; Z83.3 Family history of diabetes mellitus; Z82.69 Family history of other diseases of the musculoskeletal system and connective tissue
CPT/HCPCS: 36415; 71045; 71046; 71260; 74022; 74174; 74230; 76604; 80048; 80053; 80061; 81001; 82550; 82553; 83036; 83605; 83615; 83735; 84100; 84155; 84157; 84443; 84484; 85025; 85610; 85730; 87070; 87086; 87205; 88108; 88305; 88341; 88342; 89050; 93005; 93306; 93923; 94640; 94760; 96361; 96365; 96368; 99285

== ENCOUNTER 2017-08-02 10:41 | Emergency (ER) | payer MEDICARE ==
[2017-08-02 10:53] VITALS: TEMP 97
[2017-08-02] MEDS ORDERED: SODIUM CHLORIDE 0.9% 500 ML IV ONE ×2 (11:01→11:57)
[2017-08-02] MEDS ORDERED: MORPHINE SULFATE 2 MG/ML SYRINGE IVP STA (11:01)
[2017-08-02] MEDS: METOPROLOL TARTRATE 5 MG/5 ML VIAL IVP SCH ×4 (11:12→11:54)
[2017-08-02 11:19] LABS: Basophils % (A) 0 %; Eosinophils % (A) 0 %; HCT 51.6 % (34.0-46.0); Lymphocytes # (A) 2.5 k/uL (1.0-4.8); Lymphocytes % (A) 16 %; MCH 31.6 pg (25.0-35.0); MCHC 32.6 g/dL (31.0-37.0); Mean Platelet Volume 8.8; Monocytes # (A) 0.7 k/uL (0-1.0); Monocytes % (A) 4 %; Neutrophils % (A) 78 %; Platelet Count 239 k/uL (150-450); RBC 5.32 m/uL (3.80-5.40); RDW 13.1 % (11.5-15.5); WBC 15.4 k/uL (3.8-10.6)
--- NOTE | 2017-08-02 11:21 | ED ---
General Adult HPI - General Chief complaint: Fall Stated complaint: LEG PAIN Time Seen by Provider: 08/02/17 10:42 Source: patient, family, EMS, RN notes reviewed, old records reviewed Mode of arrival: EMS Limitations: no limitations - History of Present Illness Initial comments: 81-year-old female presents with generalized pain complaints. Patient is accompanied by her daughter who is able to add some additional history. Patient states she had a minor fall yesterday evening, she complains of pain on her back side. There is no head or neck trauma. She has had lower extremity pain for some time over this is worse today. She has a history of an aortic occlusion which according to the patient is not repairable. She also has history of atrial fibrillation and is off anticoagulation secondary to recent falls. She is on aspirin which she takes for her aortic occlusion. She denies significant chest pain. She complains of extremity pain. Mild abdominal pain. Basically generalized pain complaint. She was found to be in A. fib with RVR by EMS. She has been taking her metoprolol as prescribed. - Related Data Home Medications Medication Instructions Recorded Confirmed Ascorbic Acid [Vitamin C] 500 mg PO DAILY 07/23/17 08/02/17 Atorvastatin [Lipitor] 10 mg PO DAILY@1200 07/23/17 08/02/17 Calcium Carbonate/Vitamin D3 1 tab PO DAILY 07/23/17 08/02/17 [Calcium 600-Vit D3 400 Caplet] Multivitamins, Thera [Multivitamin 1 tab PO DAILY 07/23/17 08/02/17 (formulary)] Risedronate Sodium [Actonel] 35 mg PO WE 07/23/17 08/02/17 amLODIPine [Norvasc] 5 mg PO DAILY 07/23/17 08/02/17 predniSONE See Taper PO DIRECTED 08/02/17 08/02/17 traMADol HCL [Ultram] 50 mg PO TID PRN 08/02/17 08/02/17 Previous Rx's Medication Instructions Recorded Aspirin EC [Ecotrin Low Dose] 81 mg PO DAILY #30 tablet. 07/26/17 Empagliflozin/Linagliptin 1 tab PO DAILY #30 tablet 07/26/17 [Glyxambi 25 mg-5 mg Tablet] Furosemide [Lasix] 20 mg PO DAILY #30 tab 07/26/17 Metoprolol Tartrate [Lopressor] 25 mg PO TID #90 tab 07/26/17 Allergies Allergy/AdvReac Type Severity Reaction Status Date / Time No Known Allergies Allergy Verified 08/02/17 11:41 Review of Systems ROS Statement: Those systems with pertinent positive or pertinent negative responses have been documented in the HPI. ROS Other: All systems not noted in ROS Statement are negative. Past Medical History Past Medical History: Atrial Fibrillation, Diabetes Mellitus, Eye Disorder, Hyperlipidemia, Hypertension, Memory Impairment, Vascular Disorder Additional Past Medical History / Comment(s): PVD, DMT2, occ incont of urine/ stool, some memory impairment, unsteady gait/falls History of Any Multi-Drug Resistant Organisms: None Reported Past Surgical History: Tubal Ligation Additional Past Surgical History / Comment(s): bowel sx d/t bowel obstruction, colonoscopies that are normal, bilateral cataract removal and intraocular lens implants Past Anesthesia/Blood Transfusion Reactions: No Reported Reaction Past Psychological History: Anxiety Smoking Status: Current every day smoker - Past Family History Father Family Medical History: Diabetes Mellitus Additional Family Medical History / Comment(s): Mother at a young age from consultation from alcohol abuse. Brother(s) Family Medical History: Diabetes Mellitus Additional Family Medical History / Comment(s): Patient had 4 brothers and one from diabetes with complications including amputations. Mother History Unknown: Yes Additional Family Medical History / Comment(s): Mother has passed and also had history of diabetes with previous lower extremity amputations. Sister(s) Additional Family Medical History / Comment(s): Patient has one sister that had a history of myasthenia gravis. General Exam Limitations: no limitations General appearance: alert Head exam: Present: atraumatic, normocephalic Eye exam: Present: normal appearance, PERRL, EOMI ENT exam: Present: normal exam Neck exam: Present: normal inspection. Absent: tenderness, meningismus Respiratory exam: Present: normal lung sounds bilaterally. Absent: respiratory distress Cardiovascular Exam: Present: tachycardia, irregular rhythm GI/Abdominal exam: Present: soft. Absent: distended, tenderness, guarding Extremities exam: Present: normal inspection, other (Warm to the touch, no palpable pulses). Absent: pedal edema Neurological exam: Present: alert, oriented X3, CN II-XII intact. Absent: motor sensory deficit Psychiatric exam: Present: normal affect, normal mood Skin exam: Present: warm, dry, intact. Absent: cyanosis, diaphoretic Course Vital Signs 08/02/17 08/02/17 08/02/17 10:43 11:16 11:46 Temperature 97 F L Pulse Rate 175 H 131 H 153 H Respiratory 20 20 20 Rate Blood Pressure 141/94 157/95 130/68 O2 Sat by Pulse 100 100 100 Oximetry 08/02/17 08/02/17 08/02/17 11:50 11:55 13:00 Temperature Pulse Rate 149 H 144 H 72 Respiratory 20 18 18 Rate Blood Pressure 120/56 125/61 110/57 O2 Sat by Pulse 100 100 98 Oximetry EKG Findings - EKG Comments: EKG Findings:: EKG obtained at 1057 shows atrial fibrillation with RVR, right bundle, rate of 175, QRS duration 108, QTC 552. Repeat EKG obtained at 1313 shows sinus rhythm with PAC, left atrial enlargement, right bundle branch block , ventricular rate of 69, QRS duration 110, DE interval 126, QTC 443 Medical Decision Making - Medical Decision Making 81-year-old female presenting with diffuse body ache primarily lower extremity pain. She has a history of an aortic occlusion with collateral flow. She is found to be in A. fib with RVR. She is not anticoagulated. She has cool bilateral lower extremities. Laboratory studies reveal elevated white blood cell count, hemoglobin 16.8 which is significantly higher than previous at 12 which is likely secondary to hemoconcentration. Lactic acid of 6.8 consistent with ischemia, likely from limb ischemia secondary to decreased cardiac output secondary to A. fib with RVR. Troponin is also mildly elevated likely secondary to demand ischemia. Given the elevated white blood cell count, patient does receive a dose of broad-spectrum IV antibiotics. She is given pain control. She is given multiple dose of metoprolol and Cardizem and started on a Cardizem infusion. She does convert to normal sinus rhythm in the emergency department. Pain is improved at the time of reevaluation. Case is discussed with the patient's vascular surgeon Dr. Monge who does not recommend reimaging her aorta at this time. He will see the patient in consultation. She will be placed in ICU, however her covering ICU physician is out of town, she will be transferred for ICU management at [facility]. Case is discussed with Dr. Hunt, telecom coordinator. He will see the patient at [facility]. - Lab Data Result diagrams: 08/02/17 11:07 08/02/17 11:07 Lab Results 08/02/17 08/02/17 08/02/17 Range/Units 11:07 11:07 11:07 WBC 15.4 H (3.8-10.6) k/uL RBC 5.32 (3.80-5.40) m/uL Hgb 16.8 H D (11.4-16.0) gm/dL Hct 51.6 H (34.0-46.0) % MCV 97.0 (80.0-100.0) fL MCH 31.6 (25.0-35.0) pg MCHC 32.6 (31.0-37.0) g/dL RDW 13.1 (11.5-15.5) % Plt Count 239 (150-450) k/uL Neutrophils % 78 % Lymphocytes % 16 % Monocytes % 4 % Eosinophils % 0 % Basophils % 0 % Neutrophils # 12.0 H (1.3-7.7) k/uL Lymphocytes # 2.5 (1.0-4.8) k/uL Monocytes # 0.7 (0-1.0) k/uL Eosinophils # 0.0 (0-0.7) k/uL Basophils # 0.0 (0-0.2) k/uL PT (9.0-12.0) sec INR (<1.2) APTT (22.0-30.0) sec Sodium (137-145) mmol/L Potassium (3.5-5.1) mmol/L Chloride (98-107) mmol/L Carbon Dioxide (22-30) mmol/L Anion Gap mmol/L BUN (7-17) mg/dL Creatinine (0.52-1.04) mg/dL Est GFR (CKD-EPI)AfAm (>60 ml/min/1.73 sqM) Est GFR (CKD-EPI)NonAf (>60 ml/min/1.73 sqM) Glucose (74-99) mg/dL Plasma Lactic Acid Asif 6.8 H* (0.7-2.0) mmol/L Calcium (8.4-10.2) mg/dL Magnesium (1.6-2.3) mg/dL Total Bilirubin (0.2-1.3) mg/dL AST (14-36) U/L ALT (9-52) U/L Alkaline Phosphatase (38-126) U/L Total Creatine Kinase 93 (30-135) U/L CK-MB (CK-2) 2.0 (0.0-2.4) ng/mL CK-MB (CK-2) Rel Index 2.2 Troponin I 0.052 H* (0.000-0.034) ng/mL NT-Pro-B Natriuret Pep pg/mL Total Protein (6.3-8.2) g/dL Albumin (3.5-5.0) g/dL 08/02/17 08/02/17 08/02/17 Range/Units 11:07 11:07 11:07 WBC (3.8-10.6) k/uL RBC (3.80-5.40) m/uL Hgb (11.4-16.0) gm/dL Hct (34.0-46.0) % MCV (80.0-100.0) fL MCH (25.0-35.0) pg MCHC (31.0-37.0) g/dL RDW (11.5-15.5) % Plt Count (150-450) k/uL Neutrophils % % Lymphocytes % % Monocytes % % Eosinophils % % Basophils % % Neutrophils # (1.3-7.7) k/uL Lymphocytes # (1.0-4.8) k/uL Monocytes # (0-1.0) k/uL Eosinophils # (0-0.7) k/uL Basophils # (0-0.2) k/uL PT 10.6 (9.0-12.0) sec INR 1.1 (<1.2) APTT 18.6 L (22.0-30.0) sec Sodium 141 (137-145) mmol/L Potassium 3.9 (3.5-5.1) mmol/L Chloride 96 L (98-107) mmol/L Carbon Dioxide 22 (22-30) mmol/L Anion Gap 23 mmol/L BUN 55 H (7-17) mg/dL Creatinine 1.10 H (0.52-1.04) mg/dL Est GFR (CKD-EPI)AfAm 54 (>60 ml/min/1.73 sqM) Est GFR (CKD-EPI)NonAf 47 (>60 ml/min/1.73 sqM) Glucose 473 H* (74-99) mg/dL Plasma Lactic Acid Asif (0.7-2.0) mmol/L Calcium 10.7 H (8.4-10.2) mg/dL Magnesium 2.3 (1.6-2.3) mg/dL Total Bilirubin 1.3 (0.2-1.3) mg/dL AST 144 H (14-36) U/L ALT 93 H (9-52) U/L Alkaline Phosphatase 92 (38-126) U/L Total Creatine Kinase (30-135) U/L CK-MB (CK-2) (0.0-2.4) ng/mL CK-MB (CK-2) Rel Index Troponin I (0.000-0.034) ng/mL NT-Pro-B Natriuret Pep 1830 pg/mL Total Protein 6.4 (6.3-8.2) g/dL Albumin 4.0 (3.5-5.0) g/dL Critical Care Time Critical Care Time: Yes Total Critical Care Time: 95 Disposition Clinical Impression: Atrial fibrillation with RVR, Dehydration, Lactic acidosis Disposition: OTHER INSTITUTION NOT DEFINED Condition: Serious Is patient prescribed a controlled substance at d/c from ED?: No Referrals: Lowell Velazquez DO [Primary Care Provider] - 1-2 days Time of Disposition: 13:36 - Out of Hospital Transfer - Req. Specs Out of Hospital Transfer - Requested Specifics: Other Emergency Center ( Transfer to [facility] accepting physician Dr. Bailon)
[2017-08-02 11:25] LABS: HGB 16.8 gm/dL (11.4-16.0)
[2017-08-02 11:33] LABS: Calcium 10.7 mg/dL (8.4-10.2); Magnesium 2.3 mg/dL (1.6-2.3); Potassium 3.9 mmol/L (3.5-5.1); Total Bilirubin 1.3 mg/dL (0.2-1.3); Total Protein 6.4 g/dL (6.3-8.2)
[2017-08-02 11:42] LABS: INR 1.1 (<1.2); Prothrombin Time 10.6 sec (9.0-12.0)
[2017-08-02 11:53] LABS: Partial Thromboplastin Time 18.6 sec (22.0-30.0)
[2017-08-02 11:56] VITALS: RESP 18
[2017-08-02] MEDS ORDERED: HEPARIN SODIUM,PORCINE 5,000 UNIT/ML 1 ML VIAL IV ONE (11:57)
[2017-08-02] MEDS ORDERED: HEPARIN SODIUM,PORCINE 5,000 UNIT/ML 1 ML VIAL IV PRN (11:57)
[2017-08-02] MEDS ORDERED: SODIUM CHLORIDE 0.9% 1,000 ML IV ONE (11:58)
[2017-08-02] MEDS ORDERED: SODIUM CHLORIDE 0.9% 1,000 ML IV SCH (12:00)
[2017-08-02] MEDS ORDERED: HEPARIN SODIUM,PORCINE/D5W PMX 25,000 UNIT in DEXTROSE/WATER 1 500ML.BAG IV SCH (12:00)
[2017-08-02 12:05] LABS: Troponin I 0.052 ng/mL (0.000-0.034)
[2017-08-02] MEDS ORDERED: DILTIAZEM 50 MG in SODIUM CHLORIDE 0.9% 40 ML IV ONE (12:06)
[2017-08-02] MEDS ORDERED: DILTIAZEM 5 MG/1 ML (25ML VIAL) IV STA ×2 (12:09→12:50)
--- NOTE | 2017-08-02 12:24 | XR ---
EXAMINATION TYPE: XR pelvis AP view DATE OF EXAM: 08/02/2017 CLINICAL HISTORY: Fall with subsequent pelvic pain. TECHNIQUE: A single AP view of the pelvis is obtained. COMPARISON: None. FINDINGS: There is diffuse osseous demineralization. There is no acute fracture/dislocation evident i n the pelvis. The hip and sacroiliac joints appear symmetric and unremarkable. The overlying soft t issue appears unremarkable. Extensive vascular calcifications are noted. Radiopaque density within th e colon and retained fecal debris are present. No dilated bowel. IMPRESSION: There is no acute fracture or dislocation in the pelvis.
--- NOTE | 2017-08-02 12:24 | XR ---
EXAMINATION TYPE: XR chest 2V DATE OF EXAM: 08/02/2017 COMPARISON: 07/26/2017 HISTORY: Fall and chronic chest pain. TECHNIQUE: Frontal and lateral views of the chest are obtained. FINDINGS: There is resolution of the previously seen right basilar opacity. Pulmonary hyperinflation suggests underlying COPD. Right hilar prominence may relate to underlying pulmonary arterial hyperte nsion. Cardiomediastinal silhouette is within normal limits. There is diffuse osseous demineralizatio n and mild multilevel degenerative changes of the thoracic spine. Extensive vascular calcifications a re noted. IMPRESSION: Chronic changes with no acute cardiopulmonary process.
[2017-08-02] MEDS ORDERED: VANCOMYCIN IV PER PHARMACY 1 EACH MISC MISCELLANE PRN (12:45)
[2017-08-02] MEDS ORDERED: cefTRIAXone IN SWFI 1,000 MG/10 ML SYRINGE IVP STA (12:47)
[2017-08-02] MEDS ORDERED: VANCOMYCIN 1,000 MG in SODIUM CHLORIDE 0.9% 250 ML IVPB STA (12:51)
[2017-08-02 14:55] VITALS: BP 129/60; PULSE 66
== END 2017-08-02 14:58 | disposition short-term general hospital (02) ==
LOC: SUPCPDRO 10:41 → EC 10:41
DX: E87.2 Acidosis (principal); E86.0 Dehydration; I48.91 Unspecified atrial fibrillation; D72.829 Elevated white blood cell count, unspecified; R79.89 Other specified abnormal findings of blood chemistry; R00.0 Tachycardia, unspecified; E78.5 Hyperlipidemia, unspecified; I10 Essential (primary) hypertension; F17.200 Nicotine dependence, unspecified, uncomplicated; Z79.52 Long term (current) use of systemic steroids; Z79.82 Long term (current) use of aspirin; Z79.899 Other long term (current) drug therapy; Z86.79 Personal history of other diseases of the circulatory system; Z82.69 Family history of other diseases of the musculoskeletal system and connective tissue; W19.XXXA Unspecified fall, initial encounter; Y92.009 Unspecified place in unspecified non-institutional (private) residence as the place of occurrence of the external cause
CPT/HCPCS: 36415; 93005; 83880; 80053; 82550; 82553; 83605; 83735; 84484; 85025; 85610; 85730; 72170; 71046; 99291; 99292; 96365; 96366 ×2; 96368; 96375 ×5; 96361; J3370; J1644 ×2; J0696; J2270